=== PATIENT | female | born 1985 | race Caucasian/White ===

== ENCOUNTER 2023-01-09 11:56 | Inpatient (IN) | payer OTHER, SELFPAY ==
--- NOTE | ~2023-01-09 | XR_ITS ---
EXAMINATION: XR ABDOMEN COMPLETE CLINICAL INDICATION: Rule out foreign body COMPARISON: None available. TECHNIQUE: 2 views of the abdomen. FINDINGS: Stool throughout the colon suggestive of constipation. No dilated loops of bowel to suggest obstruction. No free air. No foreign body. Bony structures are unremarkable. XR/XR abdomen min 2V IMPRESSION: No foreign body. Constipation.
[2023-01-09 12:08] VITALS: BP 112/71; PULSE 81; RESP 18; TEMP 37.2; O2SAT 100; BMI 23.2
--- NOTE | 2023-01-09 12:08 | ED_ITS ---
HPI - General Adult General Chief complaint: Psychiatric Symptoms Stated complaint: crisis Time Seen by Provider: 01/09/23 12:17 Source: patient Mode of arrival: ambulatory Limitations: no limitations History of Present Illness HPI narrative: Patient is a 37 year old assigned female at with a history of anxiety and depression presenting to the emergency department today with suicidal ideation and depression. Patient states that she has been much more depressed lately. Patient states that she has had thoughts of harming herself but does not have any plan and know that it is not the right thing to do. Patient denies any dizziness, lightheadedness, abdominal pain, nausea, vomiting, fever, chills, blurry vision, double vision, loss of vision, chest pain, difficulty breathing, shortness of breath, back pain, night sweats, pain with urination, increased urinary frequency, increased urinary urgency, blood in her urine or stool, syncope or a near syncopal episode, recent trauma or falls, bowel incontinence, bladder incontinence, bowel retention, bladder retention, or any other complaints at this time. Onset (ago): day(s) Relieving factors: none Exacerbating factors: none Associated symptoms: denies other symptoms Treatments prior to arrival: none Related Data Home Medications Medication Instructions Recorded Confirmed baclofen 10 mg tablet 10 mg PO TID 01/09/23 01/09/23 divalproex 500 mg tablet,delayed 500 mg PO Q12H 01/09/23 01/09/23 release escitalopram oxalate 10 mg tablet 10 mg PO DAILY 01/09/23 01/09/23 folic acid 1 mg tablet 1 mg PO DAILY 01/09/23 01/09/23 gabapentin 300 mg capsule 300 mg PO BEDTIME 01/09/23 01/09/23 hydroxyzine pamoate 50 mg capsule 50 mg PO TID PRN anxiety 01/09/23 01/09/23 melatonin 3 mg tablet 3 mg PO BEDTIME PRN insomnia 01/09/23 01/09/23 mirtazapine 30 mg tablet 30 mg PO BEDTIME 01/09/23 01/09/23 omeprazole 40 mg capsule,delayed 40 mg PO BID 01/09/23 01/09/23 release prazosin 1 mg capsule 1 mg PO BID 01/09/23 01/09/23 prazosin 2 mg capsule 2 mg PO BEDTIME 01/09/23 01/09/23 Allergies Allergy/AdvReac Type Severity Reaction Status Date / Time acetaminophen [From VICODIN] Allergy Unknown RASH Unverified 05/02/20 19:53 hydrocodone [From VICODIN] Allergy Unknown RASH Unverified 05/02/20 19:53 Review of Systems Constitutional: Constitutional: Reports no additional constitutional complaints, Denies chills, Denies fever(s) and Denies night sweats Eyes: Eyes: Reports no additional eye complaints, Denies blurry vision, Denies change in vision, Denies diplopia, Denies eye discharge, Denies loss of vision and Denies eye pain ENT: Denies dizziness Cardiovascular: Cardiovascular: Reports no additional cardiovascular complaints, Denies chest pain, Denies lightheadedness, Denies Loss of Consciousness and Denies dyspnea Respiratory: Respiratory: Reports no additional respiratory complaints and Denies dyspnea Gastrointestinal: Gastrointestinal: Reports no additional gastrointestinal complaints, Denies abdominal pain, Denies melena, Denies hematochezia, Denies change in bowel habits and Denies change in stool character Genitourinary: Genitourinary: Denies hematuria, Denies urinary frequency, Denies dysuria, Denies urinary incontinence, Denies urinary hesitancy and Denies urinary urgency Musculoskeletal: Musculoskeletal: Reports no additional musculoskeletal complaints, Denies numbness and Denies tingling Neurologic: Denies dizziness, Denies loss of vision, Denies numbness and Denies tingling Psychiatric: Psychiatric: Reports anxiety, Reports depression, Denies homicidal ideation and Reports suicidal ideation Endocrine: Endocrine: Reports no additional endocrine complaints Hematologic/Lymphatic: Hematologic/Lymphatic: Reports no additional hematol ogic/lymphatic complaints Allergic/Immunologic: Allergic/Immunologic: Reports no additional allergic/immunologic complaints PMFSH Past Medical History Attestation statement: The following information was validated with the patient. Source: old records reviewed and nursing notes reviewed Social History Social History Advance Directives: No Advance Directives Information Provided: No Physical Exam ED Vital Signs: Vital Signs - 24 hr 01/09/23 12:08 Temperature 99 F Pulse Rate 81 Respiratory Rate 18 Blood Pressure 112/71 Pulse Oximetry 100 Oxygen Delivery Method Room Air BMI result Body Mass Index 23.2 Const General: cooperative, no acute distress, alert and awake Nutritional Appearance: well nourished Orientation/consciousness: patient oriented x3 Limitations: no limitations HENMT Head: Yes normal to inspection and Yes atraumatic Ears: hearing grossly normal bilaterally and external ears normal General nose exam: Normal external nose present, no nasal discharge noted and no epistaxis Face and sinus: Yes normal facial exam, No abrasion and No laceration Mouth: Normal oral and palatal mucosa present, no drooling and no muffled voice Eyes General: appearance normal, both eyes and all related structures Periorbital: periorbital findings normal Eyelids: Yes eyelids normal Conjunctivae: conjunctivae normal Pupils: Equal, round and reactive pupils present EOM: EOMs intact bilaterally Neck Neck: Yes normal visual inspection, Yes full ROM and Yes no lymphadenopathy Chest Chest palpation & inspection: normal inspection of the chest Resp Effort & Inspection: normal respiratory effort and able to speak in complete sentences Auscultation: clear to auscultation bilaterally Cardio Rate: regular rate Rhythm: regular rhythm GI Inspection: Yes normal to inspection Neuro General: patient oriented x3 and moves all extremities Cranial nerves: Yes Equal, round and reactive pupils present Cognition (Neuro): normal cognition Motor exam (neuro): 5/5 motor strength present throughout Sensory Exam: Normal double simultaneous stimulation for sensation Coordination: [id number] test normal Extrem General: Yes normal to inspection, Yes full ROM and Yes capillary refill normal Psych Appearance: grossly normal Mental Status: mental status grossly normal Affect: Sad affect present Attitude: cooperative Thought process: Normal thought process present Thought content: Suicidality present Course Course Course Narrative: RME performed by Johana Victor PA-C. Patient is a 37 year old assigned female at presenting to the emergency department with severe depression. S uicidal ideation, no plan. Labs ordered. Patient placed back in the waiting room pending room availability and results. Medications Administered Generic Name Dose Route Start Last Admin Trade Name Freq PRN Reason Stop Dose Admin Baclofen 10 mg 01/09/23 15:00 01/09/23 13:59 Baclofen 10 Mg Tablet PO 10 mg TID MICK Administration Hydroxyzine HCl 50 mg 01/09/23 13:47 01/09/23 13:59 Hydroxyzine Hcl 50 Mg Tablet PO 50 mg TID PRN Administration anxiety Omeprazole 40 mg 01/09/23 16:30 01/09/23 15:59 Omeprazole 40 Mg Capsule. PO 40 mg BID@0630,1630 MICK Administration Prazosin HCl 1 mg 01/10/23 09:00 01/09/23 15:58 Prazosin Hcl 1 Mg Capsule PO 1 mg BID@0900,1500 MICK Administration Protocol Medical Decision Making Medical Decision Making [facility] Narrative: Patient is a 37 year old assigned female at with a history of anxiety and depression presenting to the emergency department today with suicidal ideation without a plan. Patient's physical exam was unremarkable. Patient's blood work was unremarkable. Patient's urine showed a possible urinary tract infection however, she is declining any symptoms so will wait for culture before treatment. I explained my physical exam findings as well as all test results to the patient. I answered all questions asked by the patient. CARE team spoke with her and recommended inpatient bed search. Differential Diagnosis Differential Diagnoses: The differential diagnosis associated with the presentation includes depression, suicidal ideation, anxiety Consult Healthcare Provider Management of the patient was discussed with: Behavioral Health Provider (spoke with CARE team as mentioned in the MDM portion of this chart ) Lab Data [facility] Lab Attestation statement: I reviewed the patient's lab results. 01/09/23 12:46 01/09/23 12:46 Labs: Lab Results 01/09/23 01/09/23 01/09/23 Range/Units 12:38 12:38 12:40 WBC (4.8-10.8) X10*3/uL RBC (4.20-5.50) X10*6/uL Hgb (12.0-16.0) g/dl Hct (37.0-47.0) % MCV (80.0-98.0) fL MCH (27.0-33.0) pg MCHC (31.0-35.0) g/dl RDW (11.0-16.0) % Plt Count (160-400) X10*3/uL MPV (9.4-12.3) fL Immature Gran % (Auto) (0.0-0.4) % Neut % (Auto) (45-73) % Lymph % (Auto) (20-40) % [place] % (Auto) (2-11) % Eos % (Auto) (0-4) % Baso % (Auto) (0-2) % Lymph # (Auto) (1.2-4.9) X10*3/uL [place] # (Auto) (0.1-1.2) X10*3/uL Eos # (Auto) (0.0-0.4) X10*3/uL Baso # (Auto) (0.0-0.2) X10*3/uL Abs Immat Gran (auto) (0.00-0.03) X10*3/uL Absolute Neuts (auto) (2.0-8.3) x10*3/uL Absolute Nucleated RBC (0.0-0.012) X10*3/uL Nucleated RBC % (auto) (0.0-0.2) /100WBC Sodium (135-145) mmol/L Potassium (3.3-5.1) mmol/L Chloride (96-108) mmol/L Carbon Dioxide (22-29) mmol/L Anion Gap (12-20) BUN (9-16) mg/dL Creatinine (0.5-1.4) mg/dL Estim Creat Clear Calc Estimated GFR Random Glucose (60-115) mg/dL Calcium (8.4-10.2) mg/dL Total Bilirubin (0.0-1.0) mg/dL AST (5-31) U/L ALT (0-31) U/L Alkaline Phosphatase (39-117) U/L Total Protein (6.5-8.0) g/dL Albumin (3.5-5.0) g/dL Urine Color Dark Yellow Urine Appearance Turbid Urine pH 5.5 (5.0-9.0) Ur Specific [place] 1.025 (1.005-1.025) Urine Protein 30 (1+) H (Neg-Trace) mg/dL Urine Glucose (UA) Negative (Negative) mg/dL Urine Ketones Trace (Negative) mg/dL Urine Blood Trace H (Negative) Urine Nitrite Negative (Negative) Ur Leukocyte Esterase Moderate (2+) H (Negative) Urine RBC 3-5 H (0-2) /HPF Urine WBC >50 H (0-5) /HPF Ur Squamous Epith Cells 6-10 (0-2) /HPF Urine Bacteria 4+ (None Seen) Hyaline Casts 3-5 (0-2) /LPF Urine Test NEGATIVE (NEGATIVE) Salicylates (15-30) mg/dL Urine Opiates Screen Not Detected (Not Detect) Urine Fentanyl Screen POSITIVE H (Not Detect) Acetaminophen (<30) mcg/mL Ur Barbiturates Screen Not Detected (Not Detect) Ur Phencyclidine Scrn Not Detected (Not Detect) Ur Amphetamines Screen Not Detected (Not Detect) U Benzodiazepines Scrn POSITIVE H (Not Detect) Urine Cocaine Screen POSITIVE H (Not Detect) U Marijuana (THC) Screen Not Detected (Not Detect) Ethyl Alcohol mg/dL COVID-19 (FRANTZ) (Negative) COVID-19 Clin Com 01/09/23 01/09/23 01/09/23 Range/Units 12:46 12:46 12:46 WBC 3.3 L (4.8-10.8) X10*3/uL RBC 4.50 (4.20-5.50) X10*6/uL Hgb 13.4 (12.0-16.0) g/dl Hct 40.0 (37.0-47.0) % MCV 88.9 (80.0-98.0) fL MCH 29.8 (27.0-33.0) pg MCHC 33.5 (31.0-35.0) g/dl RDW 13.2 (11.0-16.0) % Plt Count 229 (160-400) X10*3/uL MPV 9.9 (9.4-12.3) fL Immature Gran % (Auto) 0.3 (0.0-0.4) % Neut % (Auto) 44.8 L (45-73) % Lymph % (Auto) 40.5 H (20-40) % [place] % (Auto) 9.2 (2-11) % Eos % (Auto) 4.3 H (0-4) % Baso % (Auto) 0.9 (0-2) % Lymph # (Auto) 1.3 (1.2-4.9) X10*3/uL [place] # (Auto) 0.3 (0.1-1.2) X10*3/uL Eos # (Auto) 0.1 (0.0-0.4) X10*3/uL Baso # (Auto) 0.0 (0.0-0.2) X10*3/uL Abs Immat Gran (auto) 0.01 (0.00-0.03) X10*3/uL Absolute Neuts (auto) 1.5 L (2.0-8.3) x10*3/uL Absolute Nucleated RBC 0.000 (0.0-0.012) X10*3/uL Nucleated RBC % (auto) 0.0 (0.0-0.2) /100WBC Sodium 142 (135-145) mmol/L Potassium 3.6 (3.3-5.1) mmol/L Chloride 109 H (96-108) mmol/L Carbon Dioxide 24 (22-29) mmol/L Anion Gap 13 (12-20) BUN 10 (9-16) mg/dL Creatinine 0.97 (0.5-1.4) mg/dL Estim Creat Clear Calc 67.2 Estimated GFR > 60 Random Glucose 142 H (60-115) mg/dL Calcium 9.5 (8.4-10.2) mg/dL Total Bilirubin 0.5 (0.0-1.0) mg/dL AST 17 (5-31) U/L ALT 14 (0-31) U/L Alkaline Phosphatase 43 (39-117) U/L Total Protein 6.7 (6.5-8.0) g/dL Albumin 3.9 (3.5-5.0) g/dL Urine Color Urine Appearance Urine pH (5.0-9.0) Ur Specific [place] (1.005-1.025) Urine Protein (Neg-Trace) mg/dL Urine Glucose (UA) (Negative) mg/dL Urine Ketones (Negative) mg/dL Urine Blood (Negative) Urine Nitrite (Negative) Ur Leukocyte Esterase (Negative) Urine RBC (0-2) /HPF Urine WBC (0-5) /HPF Ur Squamous Epith Cells (0-2) /HPF Urine Bacteria (None Seen) Hyaline Casts (0-2) /LPF Urine Test (NEGATIVE) Salicylates < 5.0 L (15-30) mg/dL Urine Opiates Screen (Not Detect) Urine Fentanyl Screen (Not Detect) Acetaminophen < 17 (<30) mcg/mL Ur Barbiturates Screen (Not Detect) Ur Phencyclidine Scrn (Not Detect) Ur Amphetamines Screen (Not Detect) U Benzodiazepines Scrn (Not Detect) Urine Cocaine Screen (Not Detect) U Marijuana (THC) Screen (Not Detect) Ethyl Alcohol < 10 mg/dL COVID-19 (FRANTZ) Negative (Negative) COVID-19 Clin Com See Note Discharge Plan Discharge Clinical Impression: Depression Patient Disposition: Still a Patient Prescriptions: No Action gabapentin 300 mg capsule 300 mg PO BEDTIME prazosin 1 mg capsule 1 mg PO BID prazosin 2 mg capsule 2 mg PO BEDTIME hydroxyzine pamoate 50 mg capsule 50 mg PO TID PRN (Reason: anxiety) melatonin 3 mg tablet 3 mg PO BEDTIME PRN (Reason: insomnia) divalproex 500 mg tablet,delayed release (DR/EC) 500 mg PO Q12H omeprazole 40 mg capsule,delayed release(DR/EC) 40 mg PO BID baclofen 10 mg tablet 10 mg PO TID mirtazapine 30 mg tablet 30 mg PO BEDTIME folic acid 1 mg tablet 1 mg PO DAILY escitalopram oxalate 10 mg tablet 10 mg PO DAILY Interventions: [place]-Suicide Risk Severity Scale Last Done: 01/09/23 12:10
[2023-01-09 12:54] LABS: Basophils Percent Auto 0.9 % (0-2); Eosinophils Absolute Auto 0.1 X10*3/uL (0.0-0.4); Eosinophils Percent Auto 4.3 % (0-4); Hemoglobin 13.4 g/dl (12.0-16.0); Imm Gran Abs Auto 0.01 X10*3/uL (0.00-0.03); Imm Gran Pct Auto 0.3 % (0.0-0.4); Lymphocytes Absolute Auto 1.3 X10*3/uL (1.2-4.9); Lymphocytes Percent Auto 40.5 % (20-40); MANUAL DIFF FLAG NO; Mean Corpuscular HGB Conc 33.5 g/dl (31.0-35.0); Mean Corpuscular Hemoglobin 29.8 pg (27.0-33.0); Mean Corpuscular Volume 88.9 fL (80.0-98.0); Mean Platelet Volume 9.9 fL (9.4-12.3); Monocytes Absolute Auto 0.3 X10*3/uL (0.1-1.2); Monocytes Percent Auto 9.2 % (2-11); Neutrophils Absolute Auto 1.5 x10*3/uL (2.0-8.3); Neutrophils Percent Auto 44.8 % (45-73); Platelet Count 229 X10*3/uL (160-400); Red Cell Distribution Width 13.2 % (11.0-16.0); White Blood Count 3.3 X10*3/uL (4.8-10.8)
[2023-01-09 12:57] LABS: Appearance Urine Turbid; Color Urine Dark Yellow; Glucose Urine UA Negative (Negative); Leukocyte Esterase Urine Moderate (2+) (Negative); Nitrite Urine Negative (Negative); PH 5.5 (5.0-9.0); Specific Gravity - Urine 1.025 (1.005-1.025); UMIC TRIGGER UA YES; Urine Blood Trace (Negative); Urine Ketones Trace mg/dL (Negative); Urine Protein 30 (1+) mg/dL (Neg-Trace)
[2023-01-09 12:59] LABS: UPreg QC Valid YES; Urine Pregnancy NEGATIVE (NEGATIVE)
[2023-01-09 13:05] LABS: Amphetamine Screen Urine Not Detected (Not Detect); Barbiturates, Urine Not Detected (Not Detect); Benzodiazepines Screen Urine POSITIVE (Not Detect); Cannabinoid Screen Urine Not Detected (Not Detect); Cocaine Screen Urine POSITIVE (Not Detect); Fentanyl, urine POSITIVE (Not Detect); Opiate Screen Urine Not Detected (Not Detect); Phencyclidine Screen Urine Not Detected (Not Detect)
[2023-01-09 13:06] LABS: COVID-19 Test Negative (Negative); IDNOW Serial# BCCEAD1C
[2023-01-09 13:10] LABS: Bacteria Urine 4+ (None Seen); WBC Urine >50 /HPF (0-5)
[2023-01-09 13:23] LABS: Acetaminophen LAB < 17 mcg/mL (<30); Alanine Aminotransferase 14 U/L (0-31); Albumin Level 3.9 g/dL (3.5-5.0); Alkaline Phosphatase 43 U/L (39-117); Anion Gap 13 (12-20); Aspartate Amino Transferase 17 U/L (5-31); Bilirubin Total 0.5 mg/dL (0.0-1.0); Blood Urea Nitrogen 10 mg/dL (9-16); Calcium 9.5 mg/dL (8.4-10.2); Carbon Dioxide 24 mmol/L (22-29); Chloride 109 mmol/L (96-108); Creatinine Clr Calc Pharmacy 67.2; Estimated Glomerular Filt Rate > 60; Ethanol < 10 mg/dL; Glucose Random 142 mg/dL (60-115); Potassium 3.6 mmol/L (3.3-5.1); Salicylate < 5.0 mg/dL (15-30); Sodium 142 mmol/L (135-145); Total Protein 6.7 g/dL (6.5-8.0)
[2023-01-09] MEDS: hydrOXYzine HCL 50 MG TABLET PO (13:59)
[2023-01-09] MEDS: Baclofen 10 MG TABLET PO ×2 (13:59→22:38)
[2023-01-09] MEDS: Prazosin HCL 1 MG CAPSULE PO (15:58)
[2023-01-09] MEDS: Omeprazole 40 MG CAPSULE.DR PO (15:59)
--- NOTE | 2023-01-09 16:46 | ECG_ITS ---
Test Reason : CHECK QT Blood Pressure : / mmHG Vent. Rate : 073 BPM Atrial Rate : 073 BPM P-R Int : 138 ms QRS Dur : 080 ms QT Int : 402 ms P-R-T Axes : 071 062 059 degrees QTc Int : 442 ms Normal sinus rhythm Normal ECG No previous ECGs available Referred By: Johana Victor Electronically Signed By:SWAPNIL GARCIA
--- NOTE | 2023-01-09 17:33 | MHC.RECOVSUP ---
? Reason for consult Recovery support o Current location: [facility] o Identified substance use concern: Crack Cocain - Support ? Intervention: o Community resources provided o Harm reduction discussion ? Plan: o Patient awaiting crisis evaluation o Patient to follow up with [facility] after discharge ? Additional information: Met with Patient and we talk about harm reduction and recovery..We talk about program like [facility].. Patient stated that they want to go to a prison program but away from [facility].. We also talked about [facility] [place] and patient was interested.. Info was given to patient
[2023-01-09 22:05] VITALS: BP 169/63; PULSE 87; RESP 18; TEMP 36.6; O2SAT 100
[2023-01-09] MEDS: Divalproex Sodium 500 MG TABLET.DR PO (22:38)
[2023-01-09] MEDS: Gabapentin 300 MG CAPSULE PO (22:38)
[2023-01-09] MEDS: Mirtazapine 30 MG TABLET PO (22:38)
[2023-01-09] MEDS: Prazosin HCL 1 MG CAPSULE 2 MG PO (22:39)
[2023-01-09] MEDS: Melatonin 3 MG TABLET PO (22:44)
[2023-01-09] MEDS: LORazepam 1 MG TABLET 2 MG PO (22:44)
[2023-01-09 23:13] VITALS: PULSE 87
[2023-01-10] VITALS (8 sets, daily range): BP systolic 86–123; BP diastolic 43–60; PULSE 70–88; RESP 16–18; TEMP 36.5–36.7; O2SAT 97–100
--- NOTE | 2023-01-10 03:42 | PC.ADMIT ---
Patient is a 37 year old female admitted from [facility] on 01/09/23 at 2205 on a CV for increased depression and SI without a plan. Patient reports her brother and son have within the past year, and it is right around the anniversary of her son?s . Patient has had 5 inpatient hospitalizations in the past, one prior suicide attempt (4 years ago, patient attempted to hang self). Toxicology positive for fentanyl, cocaine, benzo?s. She reports daily alcohol consumption of two pints of vodka per day. She uses crack-cocaine daily, and reports that she uses heroin daily as well. Her last drink and drug use was 01/09/23 prior to coming to ED. Provider notified and patient placed on CIWA and COWS Q4H while awake. Patient arrives to unit, tearful, agitated, complaining of withdrawals. She reports SI, no plan. ?Patient does not want to be here any longer.?? Denies HI, AH/VH, feels comfortable coming to staff if needed. Upon arrival, patient declined to participate in the admission process. Orders obtained, patient placed on 15 minutes checks at this time.
[2023-01-10] MEDS: LORazepam 1 MG TABLET PO (04:37)
[2023-01-10 07:40] LABS: Estimated Average Glucose 85 mg/dL; Hemoglobin A1c % 4.6 %
[2023-01-10 08:26] LABS: Alanine Aminotransferase 12 U/L (0-31); Albumin Level 3.2 g/dL (3.5-5.0); Alkaline Phosphatase 44 U/L (39-117); Anion Gap 9 (12-20); Aspartate Amino Transferase 11 U/L (5-31); Bilirubin Total 0.2 mg/dL (0.0-1.0); Blood Urea Nitrogen 21 mg/dL (9-16); Calcium 8.5 mg/dL (8.4-10.2); Carbon Dioxide 24 mmol/L (22-29); Chloride 109 mmol/L (96-108); Cholesterol 142 mg/dL; Creatinine Clr Calc Pharmacy 71.6; Estimated Glomerular Filt Rate > 60; Folate 13.3 ng/mL (> or = 4.0); Free T4 (Free Thyroxine) 0.85 ng/dL (0.71-1.85); Glucose Fasting 127 mg/dL (60-99); HDL Cholesterol 43 mg/dL; LDL Cholesterol Calculated 87 mg/dl; Potassium 3.9 mmol/L (3.3-5.1); Sodium 138 mmol/L (135-145); Thyroid Stimulating Hormone 0.86 uIU/mL (0.32-4.0); Total Protein 5.4 g/dL (6.5-8.0); Triglycerides 60 mg/dL; Vitamin B12 224 pg/mL (200-900)
[2023-01-10] MEDS: Prazosin HCL 1 MG CAPSULE PO (09:34)
[2023-01-10] MEDS: Divalproex Sodium 500 MG TABLET.DR PO ×2 (09:34→21:53)
[2023-01-10] MEDS: Omeprazole 40 MG CAPSULE.DR PO ×2 (09:34→16:34)
[2023-01-10] MEDS: Folic Acid 1 MG TABLET PO (09:34)
[2023-01-10] MEDS: Escitalopram Oxalate 10 MG TABLET PO (09:34)
[2023-01-10] MEDS: Baclofen 10 MG TABLET PO ×3 (09:34→21:53)
[2023-01-10] MEDS: LORazepam 1 MG TABLET 2 MG PO (09:42)
[2023-01-10] MEDS: Magnesium Hydrox/Alum Hydrox 30 ML ORAL.SUSP PO (09:42)
[2023-01-10] MEDS: Ondansetron ODT 4 MG TAB.RAPDIS TRANSLINGU (11:04)
[2023-01-10] MEDS: methADONE HCl 20 MG/2 ML ORAL.CONC 30 MG PO (13:58)
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
[2023-01-10] MEDS: Prazosin HCL 1 MG CAPSULE 2 MG PO (21:53)
[2023-01-10] MEDS: Gabapentin 300 MG CAPSULE PO (21:53)
[2023-01-10] MEDS: Mirtazapine 30 MG TABLET PO (21:53)
[2023-01-11 00:15] VITALS: BP 109/53; PULSE 60; O2SAT 100
[2023-01-11] MEDS: hydrOXYzine HCL 50 MG TABLET PO (00:19)
[2023-01-11] MEDS: Melatonin 3 MG TABLET PO (00:20)
[2023-01-11 05:10] VITALS: BP 114/54; PULSE 58; O2SAT 100
[2023-01-11 06:00] VITALS: BP 110/62; PULSE 58; RESP 16; TEMP 36.8; O2SAT 99
[2023-01-11 08:00] VITALS: PULSE 58
[2023-01-11] MEDS: methADONE HCl 20 MG/2 ML ORAL.CONC 30 MG PO (08:38)
[2023-01-11] MEDS: Divalproex Sodium 500 MG TABLET.DR PO ×2 (08:38→22:51)
[2023-01-11] MEDS: Omeprazole 40 MG CAPSULE.DR PO ×2 (08:38→16:13)
[2023-01-11] MEDS: Escitalopram Oxalate 10 MG TABLET PO (08:39)
[2023-01-11] MEDS: Baclofen 10 MG TABLET PO ×2 (08:39→16:13)
[2023-01-11] MEDS: LORazepam 1 MG TABLET PO (08:39)
[2023-01-11] MEDS: Folic Acid 1 MG TABLET PO (08:39)
[2023-01-11] MEDS: Dicyclomine HCl 10 MG CAPSULE PO (12:11)
--- NOTE | 2023-01-11 15:02 | HO.PSYCHPN ---
Subjective Subjective Date of Service: 01/11/23 Reason For Visit: SI/depression Interim History: calm, cooperative. walking unsteadily, asking for bolstering by staff; this appears affected. states she feels better than yesterday since starting the methadone, states she is having less nausea today. she does endorse COOK, sweats, and having vomited this morning. educated re ativan taper. asks to DC rich saying she has been on it for a long time and it has not been helpful for her depression. per staff, denies Sx. sleeping a lot. isolative to room. not hypotensive today. broken sleep. Mental Status Exam Mental Status Exam Narrative: calm, cooperative. no PMA/PMR. speech nml rate, decr amount, nml loudness, nml tone, nml latency. thoughts linear and logical. affect constricted, normo-intense, non-labile. no SI/HI/AVH expressed. Diagnostics Vital Signs (24Hr): Vital Signs - 24 hr 01/10/23 15:45 01/10/23 20:15 01/10/23 21:30 Temperature 98.1 F 98.1 F Pulse Rate 70 86 88 Respiratory Rate 16 Blood Pressure 102/56 L 122/56 L 123/60 Pulse Oximetry 100 99 Oxygen Delivery Method Room Air Room Air 01/11/23 00:15 01/11/23 05:10 01/11/23 06:00 Temperature 98.2 F Pulse Rate 60 58 58 Respiratory Rate 16 Blood Pressure 109/53 L 114/54 L 110/62 Pulse Oximetry 100 100 99 Oxygen Delivery Method Room Air Room Air Room Air BMI result Body Mass Index 23.2 Labs 01/09/23 12:46 01/10/23 07:04 Labs: Laboratory Results - last 48 hr 01/10/23 01/10/23 07:04 07:04 Sodium 138 Potassium 3.9 Chloride 109 H Carbon Dioxide 24 Anion Gap 9 L BUN 21 H Creatinine 1.02 Estim Creat Clear Calc 71.6 Estimated GFR > 60 Fasting Glucose 127 H Estimat Average Glucose 85 Hemoglobin A1c % 4.6 Calcium 8.5 D Total Bilirubin 0.2 AST 11 ALT 12 Alkaline Phosphatase 44 Total Protein 5.4 L Albumin 3.2 L Triglycerides 60 Cholesterol 142 LDL Cholesterol, Calc 87 HDL Cholesterol 43 Vitamin B12 224 Folate 13.3 TSH 0.86 Free T4 0.85 Medications Medications Current Medications Al Hydroxide/Mg Hydroxide (Magnesium Hydrox/Alum Hydrox 30 Ml Oral.Susp) 30 ml PO Q6H PRN PRN Reason: Heartburn/Nausea Last Admin: 01/10/23 09:42 Dose: 30 ml Baclofen (Baclofen 10 Mg Tablet) 10 mg PO TID [facility] Last Admin: 01/11/23 08:39 Dose: 10 mg Clonidine HCl (Clonidine Hcl 0.1 Mg Tablet) 0.1 mg PO Q2H PRN; Protocol PRN Reason: signs of opioid withdrawal Dicyclomine HCl (Dicyclomine Hcl 10 Mg Capsule) 10 mg PO QIDACHS PRN PRN Reason: cramps Last Admin: 01/11/23 12:11 Dose: 10 mg Divalproex Sodium (Divalproex Sodium 500 Mg Tablet.Dr) 500 mg PO BID [facility] Last Admin: 01/11/23 08:38 Dose: 500 mg Folic Acid (Folic Acid 1 Mg Tablet) 1 mg PO DAILY [facility] Last Admin: 01/11/23 08:39 Dose: 1 mg Gabapentin (Gabapentin 300 Mg Capsule) 300 mg PO BEDTIME [facility] Last Admin: 01/10/23 21:53 Dose: 300 mg Hydroxyzine HCl (Hydroxyzine Hcl 50 Mg Tablet) 50 mg PO TID PRN PRN Reason: anxiety Last Admin: 01/11/23 00:19 Dose: 50 mg Ibuprofen (Ibuprofen 600 Mg Tablet) 600 mg PO Q6H PRN PRN Reason: Pain, Moderate(Pain Scale 4-6) Lorazepam (Lorazepam 1 Mg Tablet) 1 mg PO Q2H PRN PRN Reason: CIWA 8-11 Last Admin: 01/11/23 08:39 Dose: 1 mg Lorazepam (Lorazepam 1 Mg Tablet) 3 mg PO Q2H PRN PRN Reason: CIWA > 15; and call Lorazepam (Lorazepam 1 Mg Tablet) 2 mg PO Q2H PRN PRN Reason: CIWA 12-15 Last Admin: 01/10/23 09:42 Dose: 2 mg Magnesium Hydroxide (Milk Of Magnesia 30 Ml Oral.Susp) 30 ml PO DAILY PRN PRN Reason: Constipation Melatonin (Melatonin 3 Mg Tablet) 3 mg PO BEDTIME PRN PRN Reason: insomnia Last Admin: 01/11/23 00:20 Dose: 3 mg Mirtazapine (Mirtazapine 30 Mg Tablet) 30 mg PO BEDTIME [facility] Last Admin: 01/10/23 21:53 Dose: 30 mg Nicotine Polacrilex (Nicotine Polacrilex 2 Mg Gum) 2 mg BUCCAL Q2H PRN PRN Reason: Nicotine Cravings Omeprazole (Omeprazole 40 Mg Capsule.Dr) 40 mg PO BID@0630,1630 [facility] Last Admin: 01/11/23 08:38 Dose: 40 mg Ondansetron HCl (Ondansetron Odt 4 Mg Tab.Rapdis) 4 mg TRANSLINGU Q6H PRN PRN Reason: Nausea Last Admin: 01/10/23 11:04 Dose: 4 mg Prazosin HCl (Prazosin Hcl 1 Mg Capsule) 1 mg PO BID@0900,1500 [facility]ICK; Protocol Last Admin: 01/11/23 08:39 Dose: Not Given Prazosin HCl (Prazosin Hcl 1 Mg Capsule) 2 mg PO BEDTIME [facility]; Protocol Last Admin: 01/10/23 21:53 Dose: 2 mg Allergies Allergies Allergy/AdvReac Type Severity Reaction Status Date / Time acetaminophen [From VICODIN] Allergy Unknown RASH Verified 01/09/23 20:59 hydrocodone [From VICODIN] Allergy Unknown RASH Verified 01/09/23 20:59 clonidine AdvReac Unknown Unknown Verified 01/10/23 01:05 Assessment & Plan Assessment & Plan (1) Depression: Status: Acute Code(s): F32.A - Depression, unspecified (2) Cocaine use disorder: Status: Acute Code(s): F14.10 - Cocaine abuse, uncomplicated (3) Opioid use disorder: Status: Acute Code(s): F11.90 - Opioid use, unspecified, uncomplicated (4) Alcohol use disorder: Status: Acute Code(s): F10.90 - Alcohol use, unspecified, uncomplicated Plan 01/10: ativan per CIWA for AUD and + benzo utox. start methadone 30 mg daily for opioid use disorder. supportive care for cocaine use. restart meds for regulation of mood. refer for CSS. 01/11: calm, cooperative. sleepy, 2/2 not sleeping during cocaine run. reporting some Sx of alcohol withdrawal, but will start ativan taper today. DC lexapro per pt request. Patient educated on: diagnosis, medication risk/benefits and substance abuse Reason for continued inpatient stay Substantial Risk for: inability to function and rapid decompensation Time Spent With Patient Time: Total time managing care of this patient today __25__ minutes.
[2023-01-11 16:05] VITALS: BP 112/56; PULSE 68
[2023-01-11] MEDS: Prazosin HCL 1 MG CAPSULE PO (16:13)
[2023-01-11 21:00] VITALS: BP 111/53; PULSE 69; RESP 16; TEMP 36.3; O2SAT 97
[2023-01-11] MEDS: Prazosin HCL 1 MG CAPSULE 2 MG PO (22:51)
[2023-01-11] MEDS: Mirtazapine 30 MG TABLET PO (22:51)
--- NOTE | 2023-01-12 00:37 | PC.NURSE ---
Patient was noted to be sedated and falling asleep while eating. This advertising writer informed Dr. Long Orona of patient's presentation. Orders received to hold two HS medications.
[2023-01-12 08:15] VITALS: BP 112/63; PULSE 66; RESP 18; TEMP 36.8; O2SAT 99
[2023-01-12] MEDS: Omeprazole 40 MG CAPSULE.DR PO ×2 (09:10→16:57)
[2023-01-12] MEDS: Prazosin HCL 1 MG CAPSULE PO ×2 (09:10→14:14)
[2023-01-12] MEDS: methADONE HCl 20 MG/2 ML ORAL.CONC 30 MG PO (09:11)
[2023-01-12] MEDS: Divalproex Sodium 500 MG TABLET.DR PO ×2 (09:11→20:16)
[2023-01-12] MEDS: Folic Acid 1 MG TABLET PO (09:11)
--- NOTE | 2023-01-12 12:17 | P.PNPSI_ITS ---
Subjective Subjective Date of Service: 01/12/23 Reason For Visit: SI/depression Interim History: somnolent but rousable. avers she uses heroin daily and methadone is very much indicated for her and helpful. c/o shakes, sweats, COOK. states the methadone does not feel sufficient today, believes she is in opioid withdrawal. informs her that due to reports of recent sedation, we will leave the dosing where it is currently and see how the day progresses. she expresses understanding and agreement. JOSEPHINE jesus present for some of the meeting, discuss referrals to CSS. Mental Status Exam Mental Status Exam Narrative: calm, cooperative. no PMA/PMR. speech nml rate, decr amount, nml loudness, nml tone, nml latency. thoughts linear and logical. affect constricted, normo-intense, non-labile. no SI/HI/AVH expressed. Diagnostics Vital Signs (24Hr): Vital Signs - 24 hr 01/11/23 16:05 01/11/23 21:00 Temperature 97.4 F Pulse Rate 68 69 Respiratory Rate 16 Blood Pressure 112/56 L 111/53 L Pulse Oximetry 97 Oxygen Delivery Method Room Air BMI result Body Mass Index 23.2 Labs 01/09/23 12:46 01/10/23 07:04 Medications Medications Current Medications Al Hydroxide/Mg Hydroxide (Magnesium Hydrox/Alum Hydrox 30 Ml Oral.Susp) 30 ml PO Q6H PRN PRN Reason: Heartburn/Nausea Last Admin: 01/10/23 09:42 Dose: 30 ml Baclofen (Baclofen 10 Mg Tablet) 10 mg PO TID [facility] Last Admin: 01/11/23 22:27 Dose: Not Given Divalproex Sodium (Divalproex Sodium 500 Mg Tablet.) 500 mg PO BID [facility] Last Admin: 01/12/23 09:11 Dose: 500 mg Folic Acid (Folic Acid 1 Mg Tablet) 1 mg PO DAILY [facility] Last Admin: 01/12/23 09:11 Dose: 1 mg Gabapentin (Gabapentin 300 Mg Capsule) 300 mg PO BEDTIME [facility] Last Admin: 01/11/23 22:27 Dose: Not Given Hydroxyzine HCl (Hydroxyzine Hcl 50 Mg Tablet) 50 mg PO TID PRN PRN Reason: anxiety Last Admin: 01/11/23 00:19 Dose: 50 mg Ibuprofen (Ibuprofen 600 Mg Tablet) 600 mg PO Q6H PRN PRN Reason: Pain, Moderate(Pain Scale 4-6) Lorazepam (Lorazepam 1 Mg Tablet) 1 mg PO Q2H PRN PRN Reason: CIWA 8-11 Last Admin: 01/11/23 08:39 Dose: 1 mg Lorazepam (Lorazepam 1 Mg Tablet) 3 mg PO Q2H PRN PRN Reason: CIWA > 15; and call MD Lorazepam (Lorazepam 1 Mg Tablet) 2 mg PO Q2H PRN PRN Reason: CIWA 12-15 Last Admin: 01/10/23 09:42 Dose: 2 mg Magnesium Hydroxide (Milk Of Magnesia 30 Ml Oral.Susp) 30 ml PO DAILY PRN PRN Reason: Constipation Melatonin (Melatonin 3 Mg Tablet) 3 mg PO BEDTIME PRN PRN Reason: insomnia Last Admin: 01/11/23 00:20 Dose: 3 mg Methadone HCl (Methadone Hcl 20 Mg/2 Ml Oral.Conc) 30 mg PO DAILY [facility] Last Admin: 01/12/23 09:11 Dose: 30 mg Mirtazapine (Mirtazapine 30 Mg Tablet) 30 mg PO BEDTIME [facility] Last Admin: 01/11/23 22:51 Dose: 30 mg Nicotine Polacrilex (Nicotine Polacrilex 2 Mg Gum) 2 mg BUCCAL Q2H PRN PRN Reason: Nicotine Cravings Omeprazole (Omeprazole 40 Mg Capsule.Dr) 40 mg PO BID@0630,1630 [facility] Last Admin: 01/12/23 09:10 Dose: 40 mg Ondansetron HCl (Ondansetron Odt 4 Mg Tab.Rapdis) 4 mg TRANSLINGU Q6H PRN PRN Reason: Nausea Last Admin: 01/10/23 11:04 Dose: 4 mg Prazosin HCl (Prazosin Hcl 1 Mg Capsule) 1 mg PO BID@0900,1500 [facility]; Protocol Last Admin: 01/12/23 09:10 Dose: 1 mg Prazosin HCl (Prazosin Hcl 1 Mg Capsule) 2 mg PO BEDTIME [facility]; Protocol Last Admin: 01/11/23 22:51 Dose: 2 mg Allergies Allergies Allergy/AdvReac Type Severity Reaction Status Date / Time acetaminophen [From VICODIN] Allergy Unknown RASH Verified 01/09/23 20:59 hydrocodone [From VICODIN] Allergy Unknown RASH Verified 01/09/23 20:59 clonidine AdvReac Unknown Unknown Verified 01/10/23 01:05 Assessment & Plan Assessment & Plan (1) Depression: Status: Acute Code(s): F32.A - Depression, unspecified (2) Cocaine use disorder: Status: Acute Code(s): F14.10 - Cocaine abuse, uncomplicated (3) Opioid use disorder: Status: Acute Code(s): F11.90 - Opioid use, unspecified, uncomplicated (4) Alcohol use disorder: Status: Acute Code(s): F10.90 - Alcohol use, unspecified, uncomplicated Plan 01/10: ativan per CIWA for AUD and + benzo utox. start methadone 30 mg daily for opioid use disorder. supportive care for cocaine use. restart meds for regulation of mood. refer for CSS. 01/11: calm, cooperative. sleepy, 2/2 not sleeping during cocaine run. reporting some Sx of alcohol withdrawal, but will start ativan taper today. DC lexapro per pt request. 01/12: ativan taper DCed due to reports of over-sedation yesterday. continue methadone 30 and other medications for now and observe for level of consciousness. pt reporting feeling in opioid withdrawal today; seems more awake and alert than yesterday. Reason for continued inpatient stay Substantial Risk for: inability to function and rapid decompensation Time Spent With Patient Time: Total time managing care of this patient today ____ minutes.
[2023-01-12 14:15] VITALS: BP 105/62; PULSE 69; RESP 18; O2SAT 94
[2023-01-12] MEDS: LORazepam 1 MG TABLET PO ×3 (14:16→20:16)
[2023-01-12] MEDS: Ondansetron ODT 4 MG TAB.RAPDIS TRANSLINGU (14:17)
--- NOTE | 2023-01-12 14:41 | PC.NURSE ---
1415 pt reports that she has been incontinent of stool 2x today, and that it happens sometimes' she is using adult briefs.
[2023-01-12 19:47] VITALS: BP 120/64; PULSE 77; RESP 16; TEMP 36.7; O2SAT 98
[2023-01-12] MEDS: Prazosin HCL 1 MG CAPSULE 2 MG PO (20:16)
[2023-01-12] MEDS: Mirtazapine 30 MG TABLET PO (20:16)
[2023-01-13] MEDS: LORazepam 1 MG TABLET PO (03:39)
[2023-01-13] MEDS: Omeprazole 40 MG CAPSULE.DR PO (06:30)
[2023-01-13 08:10] VITALS: BP 110/65; PULSE 75; RESP 18; TEMP 36.6; O2SAT 98
[2023-01-13] MEDS: Folic Acid 1 MG TABLET PO (09:01)
[2023-01-13] MEDS: Prazosin HCL 1 MG CAPSULE PO (09:01)
[2023-01-13] MEDS: methADONE HCl 20 MG/2 ML ORAL.CONC 30 MG PO (09:02)
[2023-01-13] MEDS: Divalproex Sodium 500 MG TABLET.DR PO ×2 (09:02→21:14)
--- NOTE | 2023-01-13 13:43 | PC.NURSE ---
approx 1330 observed Pt, sleeping sitting up in chair in kitchen area. Pt was awakened, assisted x2 assists. Pt thought it was morning time and that i was there to give her medication. Dr. Orona notified , new order for Urine toxicity screen and a room search. Ariella Lopez notified, of orders.
--- NOTE | 2023-01-13 15:05 | PC.NURSE ---
Room search completed by Cristi Abebe and security per MD order no contraband found.
--- NOTE | 2023-01-13 15:54 | P.PNPSI_ITS ---
Subjective Subjective Date of Service: 01/13/23 Reason For Visit: SI/depression Interim History: sedated more so than would be reasonably expected with current prescribed medications, suspect pt to be using contraband in hospital. none found in pt's room or on her person, abd xray ordered. on interview, sedated, helped move pt from an apparently impossibly uncomfortable position draped across her bed to one more parallel to the bed, and on it. per staff, dep/anx 10, c/o left arm pa in. achy, cold. c/o opioid withdrawal Sx. not attending groups. ativan per CIWA scale yesterday. Mental Status Exam Mental Status Exam Narrative: calm, cooperative. no PMA/PMR. speech decr rate, decr amount, decr loudness, flattened tone, incr latency. thoughts linear and logical. affect blunted, hypo-intense, non-labile. no SI/HI/AVH expressed. Diagnostics Vital Signs (24Hr): Vital Signs - 24 hr 01/12/23 19:47 01/13/23 08:10 Temperature 98.1 F 97.9 F Pulse Rate 77 75 Respiratory Rate 16 18 Blood Pressure 120/64 110/65 Pulse Oximetry 98 98 Oxygen Delivery Method Room Air Room Air BMI result Body Mass Index 23.2 Labs 01/09/23 12:46 01/10/23 07:04 Medications Medications Current Medications Al Hydroxide/Mg Hydroxide (Magnesium Hydrox/Alum Hydrox 30 Ml Oral.Susp) 30 ml PO Q6H PRN PRN Reason: Heartburn/Nausea Last Admin: 01/10/23 09:42 Dose: 30 ml Baclofen (Baclofen 10 Mg Tablet) 10 mg PO TID [facility] Last Admin: 01/11/23 22:27 Dose: Not Given Divalproex Sodium (Divalproex Sodium 500 Mg Tablet.Dr) 500 mg PO BID [facility] Last Admin: 01/13/23 09:02 Dose: 500 mg Folic Acid (Folic Acid 1 Mg Tablet) 1 mg PO DAILY [facility] Last Admin: 01/13/23 09:01 Dose: 1 mg Gabapentin (Gabapentin 300 Mg Capsule) 300 mg PO BEDTIME [facility] Last Admin: 01/11/23 22:27 Dose: Not Given Hydroxyzine HCl (Hydroxyzine Hcl 50 Mg Tablet) 50 mg PO TID PRN PRN Reason: anxiety Last Admin: 01/11/23 00:19 Dose: 50 mg Ibuprofen (Ibuprofen 600 Mg Tablet) 600 mg PO Q6H PRN PRN Reason: Pain, Moderate(Pain Scale 4-6) Magnesium Hydroxide (Milk Of Magnesia 30 Ml Oral.Susp) 30 ml PO DAILY PRN PRN Reason: Constipation Melatonin (Melatonin 3 Mg Tablet) 3 mg PO BEDTIME PRN PRN Reason: insomnia Last Admin: 01/11/23 00:20 Dose: 3 mg Methadone HCl (Methadone Hcl 20 Mg/2 Ml Oral.Conc) 30 mg PO DAILY [facility] Last Admin: 01/13/23 09:02 Dose: 30 mg Mirtazapine (Mirtazapine 30 Mg Tablet) 30 mg PO BEDTIME [facility] Last Admin: 01/12/23 20:16 Dose: 30 mg Naloxone HCl (Naloxone Hcl Nasal 4 Mg [place]) 4 mg NOSTRILALT ONCE PRN PRN Reason: opioid overdose Nicotine Polacrilex (Nicotine Polacrilex 2 Mg Gum) 2 mg BUCCAL Q2H PRN PRN Reason: Nicotine Cravings Omeprazole (Omeprazole 40 Mg Capsule.Dr) 40 mg PO BID@0630,1630 [facility] Last Admin: 01/13/23 06:30 Dose: 40 mg Ondansetron HCl (Ondansetron Odt 4 Mg Tab.Rapdis) 4 mg TRANSLINGU Q6H PRN PRN Reason: Nausea Last Admin: 01/12/23 14:17 Dose: 4 mg Prazosin HCl (Prazosin Hcl 1 Mg Capsule) 1 mg PO BID@0900,1500 [facility]; Protocol Last Admin: 01/13/23 09:01 Dose: 1 mg Prazosin HCl (Prazosin Hcl 1 Mg Capsule) 2 mg PO BEDTIME [facility]; Protocol Last Admin: 01/12/23 20:16 Dose: 2 mg Allergies Allergies Allergy/AdvReac Type Severity Reaction Status Date / Time acetaminophen [From VICODIN] Allergy Unknown RASH Verified 01/09/23 20:59 hydrocodone [From VICODIN] Allergy Unknown RASH Verified 01/09/23 20:59 clonidine AdvReac Unknown Unknown Verified 01/10/23 01:05 Assessment & Plan Assessment & Plan (1) Depression: Status: Acute Code(s): F32.A - Depression, unspecified (2) Cocaine use disorder: Status: Acute Code(s): F14.10 - Cocaine abuse, uncomplicated (3) Opioid use disorder: Status: Acute Code(s): F11.90 - Opioid use, unspecified, uncomplicated (4) Alcohol use disorder: Status: Acute Code(s): F10.90 - Alcohol use, unspecified, uncomplicated Plan 01/10: ativan per CIWA for AUD and + benzo utox. start methadone 30 mg daily for opioid use disorder. supportive care for cocaine use. restart meds for regulation of mood. refer for CSS. 01/11: calm, cooperative. sleepy, 2/2 not sleeping during cocaine run. reporting some Sx of alcohol withdrawal, but will start ativan taper today. DC lexapro per pt request. 01/12: ativan taper DCed due to reports of over-sedation yesterday. continue methadone 30 and other medications for now and observe for level of consciousness. pt reporting feeling in opioid withdrawal today; seems more awake and alert than yesterday. 01/13: very sedated. room and person NEG for contraband. 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 utox ordered. HOLD sedating medications. Reason for continued inpatient stay Substantial Risk for: harm to self, inability to function and rapid decompensation Time Spent With Patient Time: Total time managing care of this patient today __35__ minutes.
--- NOTE | 2023-01-13 16:19 | PC.NURSE ---
Pt appeared sedated while sleeping. RN woke up pt and had her sit up. RN assessed vitals, 117/65, O2 96% HR 71 T 98.1, RR 12. Pt was mumbling and was difficult to understand. RN provided pt with gingerale and a straw but she had difficulty bringing the straw to her mouth. Pt kept her eyes closed and was nodding off.
[2023-01-13] MEDS: Prazosin HCL 1 MG CAPSULE 2 MG PO (21:14)
[2023-01-13] MEDS: Melatonin 3 MG TABLET PO (21:14)
[2023-01-13] MEDS: Mirtazapine 30 MG TABLET PO (21:14)
[2023-01-13 21:16] VITALS: BP 116/60; PULSE 90; TEMP 36.9; O2SAT 98
[2023-01-14 04:36] LABS: Amphetamine Screen Urine Not Detected (Not Detect); Barbiturates, Urine Not Detected (Not Detect); Benzodiazepines Screen Urine POSITIVE (Not Detect); Cannabinoid Screen Urine Not Detected (Not Detect); Cocaine Screen Urine POSITIVE (Not Detect); Fentanyl, urine Not Detected (Not Detect); Opiate Screen Urine Not Detected (Not Detect); Phencyclidine Screen Urine Not Detected (Not Detect)
[2023-01-14] MEDS: Omeprazole 40 MG CAPSULE.DR PO (05:53)
[2023-01-14] MEDS: Folic Acid 1 MG TABLET PO (10:30)
[2023-01-14] MEDS: methADONE HCl 20 MG/2 ML ORAL.CONC 10 MG PO ×2 (10:31→13:08)
[2023-01-14 10:42] VITALS: BP 98/60; PULSE 69; TEMP 36.4; O2SAT 100
--- NOTE | 2023-01-14 13:34 | P.PNPSI_ITS ---
Subjective Subjective Date of Service: 01/14/23 Reason For Visit: SI/depression Interim History: pt seen with JOSEPHINE jesus. and JOSEPHINE express concern for sedation. pt denies substantial sedation yesterday, ultimately seems to tacitly accept it, blaming depakote by the end of the interaction. pt was informed methadone was being held this morning, along with numerous other sedating medications (baclofen, hydroxyzine, prazosin), and VPA being rescheduled to all at HS. compromise made to dose methadone 10 mg TID today as long as pt did not become sedated. per staff, dep/anx 9. extremely sedated yesterday. falling asleep in various places on unit throughout the day. slept only 1 hour last night. Mental Status Exam Mental Status Exam Narrative: calm, cooperative. no PMA/PMR. speech nml rate, amount, loudness, tone, latency. thoughts linear and logical. affect constricted, normo-intense, non- labile. no SI/HI/AVH expressed. Diagnostics Vital Signs (24Hr): Vital Signs - 24 hr 01/13/23 21:16 01/14/23 10:42 Temperature 98.5 F 97.6 F Pulse Rate 90 69 Blood Pressure 116/60 98/60 Pulse Oximetry 98 100 Oxygen Delivery Method Room Air Room Air BMI result Body Mass Index 23.2 Labs 01/09/23 12:46 01/10/23 07:04 Labs: Laboratory Results - last 48 hr 01/14/23 04:05 Urine Opiates Screen Not Detected Urine Fentanyl Screen Not Detected Ur Barbiturates Screen Not Detected Ur Phencyclidine Scrn Not Detected Ur Amphetamines Screen Not Detected U Benzodiazepines Scrn POSITIVE H Urine Cocaine Screen POSITIVE H U Marijuana (THC) Screen Not Detected Imaging Radiology Impressions: ITS Impressions Abdomen X-Ray 01/13/23 14:52 IMPRESSION: No foreign body. Constipation. Medications Medications Current Medications Al Hydroxide/Mg Hydroxide (Magnesium Hydrox/Alum Hydrox 30 Ml Oral.Susp) 30 ml PO Q6H PRN PRN Reason: Heartburn/Nausea Last Admin: 01/10/23 09:42 Dose: 30 ml Baclofen (Baclofen 10 Mg Tablet) 10 mg PO TID [facility] Last Admin: 01/11/23 22:27 Dose: Not Given Divalproex Sodium (Divalproex Sodium 500 Mg Tablet.) 1,000 mg PO BEDTIME [facility] Folic Acid (Folic Acid 1 Mg Tablet) 1 mg PO DAILY [facility] Last Admin: 01/14/23 10:30 Dose: 1 mg Gabapentin (Gabapentin 300 Mg Capsule) 300 mg PO BEDTIME [facility] Last Admin: 01/11/23 22:27 Dose: Not Given Hydroxyzine HCl (Hydroxyzine Hcl 50 Mg Tablet) 50 mg PO TID PRN PRN Reason: anxiety Last Admin: 01/11/23 00:19 Dose: 50 mg Ibuprofen (Ibuprofen 600 Mg Tablet) 600 mg PO Q6H PRN PRN Reason: Pain, Moderate(Pain Scale 4-6) Magnesium Hydroxide (Milk Of Magnesia 30 Ml Oral.Susp) 30 ml PO DAILY PRN PRN Reason: Constipation Melatonin (Melatonin 3 Mg Tablet) 3 mg PO BEDTIME PRN PRN Reason: insomnia Last Admin: 01/13/23 21:14 Dose: 3 mg Methadone HCl (Methadone Hcl 20 Mg/2 Ml Oral.Conc) 30 mg PO DAILY [facility] Last Admin: 01/13/23 09:02 Dose: 30 mg Mirtazapine (Mirtazapine 30 Mg Tablet) 30 mg PO BEDTIME [facility] Last Admin: 01/13/23 21:14 Dose: 30 mg Naloxone HCl (Naloxone Hcl Nasal 4 Mg [place]) 4 mg NOSTRILALT ONCE PRN PRN Reason: opioid overdose Nicotine Polacrilex (Nicotine Polacrilex 2 Mg Gum) 2 mg BUCCAL Q2H PRN PRN Reason: Nicotine Cravings Omeprazole (Omeprazole 40 Mg Capsule.) 40 mg PO BID@0630,1630 [facility] Last Admin: 01/14/23 05:53 Dose: 40 mg Ondansetron HCl (Ondansetron Odt 4 Mg Tab.Rapdis) 4 mg TRANSLINGU Q6H PRN PRN Reason: Nausea Last Admin: 01/12/23 14:17 Dose: 4 mg Prazosin HCl (Prazosin Hcl 1 Mg Capsule) 1 mg PO BID@0900,1500 [facility]; Protocol Last Admin: 01/13/23 15:55 Dose: Not Given Prazosin HCl (Prazosin Hcl 1 Mg Capsule) 2 mg PO BEDTIME [facility]; Protocol Last Admin: 01/13/23 21:14 Dose: 2 mg Allergies Allergies Allergy/AdvReac Type Severity Reaction Status Date / Time acetaminophen [From VICODIN] Allergy Unknown RASH Verified 01/09/23 20:59 hydrocodone [From VICODIN] Allergy Unknown RASH Verified 01/09/23 20:59 clonidine AdvReac Unknown Unknown Verified 01/10/23 01:05 Assessment & Plan Assessment & Plan (1) Depression: Status: Acute Code(s): F32.A - Depression, unspecified (2) Cocaine use disorder: Status: Acute Code(s): F14.10 - Cocaine abuse, uncomplicated (3) Opioid use disorder: Status: Acute Code(s): F11.90 - Opioid use, unspecified, uncomplicated (4) Alcohol use disorder: Status: Acute Code(s): F10.90 - Alcohol use, unspecified, uncomplicated Plan 01/10: ativan per CIWA for AUD and + benzo utox. start methadone 30 mg daily for opioid use disorder. supportive care for cocaine use. restart meds for regulation of mood. refer for CSS. 01/11: calm, cooperative. sleepy, 2/2 not sleeping during cocaine run. reporting some Sx of alcohol withdrawal, but will start ativan taper today. DC lexapro per pt request. 01/12: ativan taper DCed due to reports of over-sedation yesterday. continue methadone 30 and other medications for now and observe for level of consciousness. pt reporting feeling in opioid withdrawal today; seems more awake and alert than yesterday. 01/13: very sedated. room and person NEG for contraband. 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 utox ordered. HOLD sedating medications. 01/14: xray abd NEG. utox unenlightening. methadone being split into TID dosing for today, sedating meds being held, VPA rescheuled to all be at HS. Reason for continued inpatient stay Substantial Risk for: inability to function and rapid decompensation Time Spent With Patient Time: Total time managing care of this patient today __35__ minutes.
[2023-01-14] MEDS: Ibuprofen 600 MG TABLET PO (14:10)
[2023-01-14 14:40] LABS: MANUAL DIFF FLAG NO
[2023-01-14 14:45] LABS: Basophils Percent Auto 0.2 % (0-2); Eosinophils Absolute Auto 0.3 X10*3/uL (0.0-0.4); Eosinophils Percent Auto 6.2 % (0-4); Hematocrit 36.4 % (37.0-47.0); Hemoglobin 11.3 g/dl (12.0-16.0); Imm Gran Abs Auto 0.01 X10*3/uL (0.00-0.03); Imm Gran Pct Auto 0.2 % (0.0-0.4); Lymphocytes Absolute Auto 1.6 X10*3/uL (1.2-4.9); Lymphocytes Percent Auto 40.8 % (20-40); Mean Corpuscular Hemoglobin 29.6 pg (27.0-33.0); Mean Corpuscular Volume 95.3 fL (80.0-98.0); Monocytes Absolute Auto 0.8 X10*3/uL (0.1-1.2); Monocytes Percent Auto 18.7 % (2-11); Neutrophils Absolute Auto 1.4 x10*3/uL (2.0-8.3); Neutrophils Percent Auto 33.9 % (45-73); Platelet Count 206 X10*3/uL (160-400); Red Blood Count 3.82 X10*6/uL (4.20-5.50); Red Cell Distribution Width 13.2 % (11.0-16.0)
[2023-01-14 14:50] LABS: Ammonia 27 umol/L (13-55)
[2023-01-14 14:57] LABS: Valproate 49.2 mcg/mL (50.0-100.0)
[2023-01-14 15:00] LABS: Alanine Aminotransferase 17 U/L (0-31); Albumin Level 3.7 g/dL (3.5-5.0); Alkaline Phosphatase 43 U/L (39-117); Anion Gap 8 (12-20); Aspartate Amino Transferase 37 U/L (5-31); Bilirubin Total 0.2 mg/dL (0.0-1.0); Blood Urea Nitrogen 13 mg/dL (9-16); Calcium 9.2 mg/dL (8.4-10.2); Carbon Dioxide 35 mmol/L (22-29); Chloride 103 mmol/L (96-108); Creatinine Clr Calc Pharmacy 97.3; Estimated Glomerular Filt Rate > 60; Glucose Random 99 mg/dL (60-115); Potassium 4.7 mmol/L (3.3-5.1); Sodium 141 mmol/L (135-145); Total Protein 6.2 g/dL (6.5-8.0)
--- NOTE | 2023-01-14 18:00 | PC.NURSE ---
Pt received 10mg methadone at 1031 and 1308. Pt was awake and attended groups during that time. At 1400 pt appeared sedated while she was on the unit phone. She had her eyes closed with the phone in her hand. Dr. [place] aware and cancelled order for 10mg methadone at 1800. Pt got up and sat at the kitchen table to eat cereal when she had her eyes closed again for several minutes. When RN brought this to pt's attention, she began crying and said I'm not sedated, I've just been thinking about my son who was murdered and how I have no one in my life to talk about my grief with. When I have my eyes closed that's what's happening. Pt remained in the milieu from [id number], occasionally closing her eyes. Pt became more alert and agitated several times after dinner saying when am I taking my methadone? You guys aren't doing your jobs and you're going to make me go into withdrawals. I don't understand what the problem is, you guys say I look like I'm overdosing but it's impossible for anyone to keep their eyes open while they're on methadone.
[2023-01-14 20:35] VITALS: BP 124/68; PULSE 70; RESP 16; TEMP 36.2; O2SAT 100
[2023-01-14] MEDS: Melatonin 3 MG TABLET PO (20:42)
[2023-01-14] MEDS: Divalproex Sodium 500 MG TABLET.DR 1000 MG PO (20:42)
[2023-01-14] MEDS: Mirtazapine 30 MG TABLET PO (20:42)
[2023-01-14] MEDS: Gabapentin 300 MG CAPSULE PO (20:42)
[2023-01-14] MEDS: Prazosin HCL 1 MG CAPSULE 2 MG PO (20:43)
[2023-01-14] MEDS: Magnesium Hydrox/Alum Hydrox 30 ML ORAL.SUSP PO (23:35)
[2023-01-15] MEDS: Omeprazole 40 MG CAPSULE.DR PO ×2 (06:31→16:15)
[2023-01-15 08:35] VITALS: BP 100/55; PULSE 77; RESP 18; TEMP 36.6; O2SAT 100
[2023-01-15] MEDS: Folic Acid 1 MG TABLET PO (09:26)
[2023-01-15] MEDS: methADONE HCl 20 MG/2 ML ORAL.CONC 10 MG PO (09:58)
[2023-01-15] MEDS: Loperamide HCl 2 MG CAPSULE PO (12:35)
--- NOTE | 2023-01-15 15:07 | P.PNPSI_ITS ---
Subjective Subjective Date of Service: 01/15/23 Reason For Visit: SI/depression Interim History: cooperative. appears sedated but not nearly as much so as recent days. c/o withdrawal Sx, incl diarrhea. room smells of urine, pt states she was incontinent in her bed. agrees to reinstate COWS with methadone PRN. per staff, on 5 min checks still due to sedation. more alert, visible yesterday morning. sedated in the afternoon. up and down throughout the night. Mental Status Exam Mental Status Exam Narrative: calm, cooperative. no PMA/PMR. speech decr rate, amount, loudness, tone. incr latency. thoughts linear and logical. affect constricted, normo-intense, non- labile. no SI/HI/AVH expressed. Diagnostics Vital Signs (24Hr): Vital Signs - 24 hr 01/14/23 20:35 01/15/23 08:35 Temperature 97.2 F 97.8 F Pulse Rate 70 77 Respiratory Rate 16 18 Blood Pressure 124/68 100/55 L Pulse Oximetry 100 100 Oxygen Delivery Method Room Air Room Air BMI result Body Mass Index 23.2 Labs 01/14/23 14:30 01/14/23 14:30 Labs: Laboratory Results - last 48 hr 01/14/23 01/14/23 01/14/23 04:05 14:29 14:30 WBC 4.0 L RBC 3.82 L Hgb 11.3 L Hct 36.4 L MCV 95.3 D MCH 29.6 MCHC 31.0 RDW 13.2 Plt Count 206 MPV 10.0 Immature Gran % (Auto) 0.2 Neut % (Auto) 33.9 L Lymph % (Auto) 40.[address] [facility] % (Auto) 18.7 H Eos % (Auto) 6.2 H Baso % (Auto) 0.2 Lymph # (Auto) 1.6 [facility] # (Auto) 0.8 Eos # (Auto) 0.3 Baso # (Auto) 0.0 Abs Immat Gran (auto) 0.01 Absolute Neuts (auto) 1.4 L Absolute Nucleated RBC 0.000 Nucleated RBC % (auto) 0.0 Sodium Potassium Chloride Carbon Dioxide Anion Gap BUN Creatinine Estim Creat Clear Calc Estimated GFR Random Glucose Calcium Total Bilirubin AST ALT Alkaline Phosphatase Ammonia 27 Total Protein Albumin Urine Opiates Screen Not Detected Urine Fentanyl Screen Not Detected Ur Barbiturates Screen Not Detected Valproic Acid Ur Phencyclidine Scrn Not Detected Ur Amphetamines Screen Not Detected U Benzodiazepines Scrn POSITIVE H Urine Cocaine Screen POSITIVE H U Marijuana (THC) Screen Not Detected 01/14/23 01/14/23 14:30 14:30 WBC RBC Hgb Hct MCV MCH MCHC RDW Plt Count MPV Immature Gran % (Auto) Neut % (Auto) Lymph % (Auto) [facility] % (Auto) Eos % (Auto) Baso % (Auto) Lymph # (Auto) [facility] # (Auto) Eos # (Auto) Baso # (Auto) Abs Immat Gran (auto) Absolute Neuts (auto) Absolute Nucleated RBC Nucleated RBC % (auto) Sodium 141 Potassium 4.7 D Chloride 103 Carbon Dioxide 35 H Anion Gap 8 L BUN 13 Creatinine 0.75 Estim Creat Clear Calc 97.3 Estimated GFR > 60 Random Glucose 99 Calcium 9.2 D Total Bilirubin 0.2 AST 37 H ALT 17 Alkaline Phosphatase 43 Ammonia Total Protein 6.2 L Albumin 3.7 Urine Opiates Screen Urine Fentanyl Screen Ur Barbiturates Screen Valproic Acid 49.2 L Ur Phencyclidine Scrn Ur Amphetamines Screen U Benzodiazepines Scrn Urine Cocaine Screen U Marijuana (THC) Screen Imaging Radiology Impressions: ITS Impressions Abdomen X-Ray 01/13/23 14:52 IMPRESSION: No foreign body. Constipation. Medications Medications Current Medications Al Hydroxide/Mg Hydroxide (Magnesium Hydrox/Alum Hydrox 30 Ml Oral.Susp) 30 ml PO Q6H PRN PRN Reason: Heartburn/Nausea Last Admin: 01/14/23 23:35 Dose: 30 ml Baclofen (Baclofen 10 Mg Tablet) 10 mg PO TID [facility] Last Admin: 01/11/23 22:27 Dose: Not Given Divalproex Sodium (Divalproex Sodium 500 Mg Tablet.) 1,000 mg PO BEDTIME [facility] [place] Last Admin: 01/14/23 20:42 Dose: 1,000 mg Folic Acid (Folic Acid 1 Mg Tablet) 1 mg PO DAILY [facility] [place] Last Admin: 01/15/23 09:26 Dose: 1 mg Gabapentin (Gabapentin 300 Mg Capsule) 300 mg PO BEDTIME [facility] [place] Last Admin: 01/14/23 20:42 Dose: 300 mg Hydroxyzine HCl (Hydroxyzine Hcl 50 Mg Tablet) 50 mg PO TID PRN PRN Reason: anxiety Last Admin: 01/11/23 00:19 Dose: 50 mg Ibuprofen (Ibuprofen 600 Mg Tablet) 600 mg PO Q6H PRN PRN Reason: Pain, Moderate(Pain Scale 4-6) Last Admin: 01/14/23 14:10 Dose: 600 mg Loperamide HCl (Loperamide Hcl 2 Mg Capsule) 2 mg PO Q4H PRN PRN Reason: Diarrhea Last Admin: 01/15/23 12:35 Dose: 2 mg Magnesium Hydroxide (Milk Of Magnesia 30 Ml Oral.Susp) 30 ml PO DAILY PRN PRN Reason: Constipation Melatonin (Melatonin 3 Mg Tablet) 3 mg PO BEDTIME PRN PRN Reason: insomnia Last Admin: 01/14/23 20:42 Dose: 3 mg Methadone HCl (Methadone Hcl 20 Mg/2 Ml Oral.Conc) 30 mg PO DAILY [facility] Last Admin: 01/13/23 09:02 Dose: 30 mg Methadone HCl (Methadone Hcl 20 Mg/2 Ml Oral.Conc) 5 mg PO Q8H PRN PRN Reason: COWS > 8 Mirtazapine (Mirtazapine 30 Mg Tablet) 30 mg PO BEDTIME [facility] [place] Last Admin: 01/14/23 20:42 Dose: 30 mg Naloxone HCl (Naloxone Hcl Nasal 4 Mg [place]) 4 mg NOSTRILALT ONCE PRN PRN Reason: opioid overdose Nicotine Polacrilex (Nicotine Polacrilex 2 Mg Gum) 2 mg BUCCAL Q2H PRN PRN Reason: Nicotine Cravings Olanzapine (Olanzapine 5 Mg Tablet) 5 mg PO DAILY PRN PRN Reason: agitation Omeprazole (Omeprazole 40 Mg Capsule.Dr) 40 mg PO BID@0630,1630 [facility] [place] Last Admin: 01/15/23 06:31 Dose: 40 mg Ondansetron HCl (Ondansetron Odt 4 Mg Tab.Rapdis) 4 mg TRANSLINGU Q6H PRN PRN Reason: Nausea Last Admin: 01/12/23 14:17 Dose: 4 mg Prazosin HCl (Prazosin Hcl 1 Mg Capsule) 1 mg PO BID@0900,1500 [facility] [place]; Protocol Last Admin: 01/13/23 15:55 Dose: Not Given Prazosin HCl (Prazosin Hcl 1 Mg Capsule) 2 mg PO BEDTIME [facility]; Protocol Last Admin: 01/14/23 20:43 Dose: 2 mg Allergies Allergies Allergy/AdvReac Type Severity Reaction Status Date / Time acetaminophen [From VICODIN] Allergy Unknown RASH Verified 01/09/23 20:59 hydrocodone [From VICODIN] Allergy Unknown RASH Verified 01/09/23 20:59 clonidine AdvReac Unknown Unknown Verified 01/10/23 01:05 Assessment & Plan Assessment & Plan (1) Depression: Status: Acute Code(s): F32.A - Depression, unspecified (2) Cocaine use disorder: Status: Acute Code(s): F14.10 - Cocaine abuse, uncomplicated (3) Opioid use disorder: Status: Acute Code(s): F11.90 - Opioid use, unspecified, uncomplicated (4) Alcohol use disorder: Status: Acute Code(s): F10.90 - Alcohol use, unspecified, uncomplicated Plan 01/10: ativan per CIWA for AUD and + benzo utox. start methadone 30 mg daily for opioid use disorder. supportive care for cocaine use. restart meds for regulation of mood. refer for CSS. 01/11: calm, cooperative. sleepy, 2/2 not sleeping during cocaine run. reporting some Sx of alcohol withdrawal, but will start ativan taper today. DC lexapro per pt request. 01/12: ativan taper DCed due to reports of over-sedation yesterday. continue methadone 30 and other medications for now and observe for level of consciousness. pt reporting feeling in opioid withdrawal today; seems more awake and alert than yesterday. 01/13: very sedated. room and person NEG for contraband. 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 utox ordered. HOLD sedating medications. 01/14: xray abd NEG. utox unenlightening. methadone being split into TID dosing for today, sedating meds being held, VPA rescheduled to all be at HS. 01/15: less sedated this morning, c/o withdrawal Sx. COWs with methadone 5 PRN reinstated. VPA low at 49.2. ammonia WNL. schedule methadone 10 mg daily with PRNs available for now, until pt's level on consciousness more consistent. T/C increase in VPA dosing at HS as pt continues to have broken sleep. Reason for continued inpatient stay Substantial Risk for: inability to function and rapid decompensation Time Spent With Patient Time: Total time managing care of this patient today __35__ minutes.
[2023-01-15 16:00] VITALS: PULSE 81
[2023-01-15 16:03] VITALS: PULSE 81; RESP 18
[2023-01-15] MEDS: methADONE HCl 20 MG/2 ML ORAL.CONC 5 MG PO ×2 (16:15→22:39)
[2023-01-15] MEDS: Gabapentin 300 MG CAPSULE PO (21:10)
[2023-01-15] MEDS: Divalproex Sodium 500 MG TABLET.DR 1000 MG PO (21:10)
[2023-01-15 21:37] LABS: Appearance Urine Clear; Color Urine Yellow; Glucose Urine UA Negative (Negative); Leukocyte Esterase Urine Negative (Negative); Nitrite Urine Negative (Negative); UMIC TRIGGER UACC YES; Urine Blood Small (1+) (Negative); Urine Ketones Negative (Negative); Urine Protein Negative (Neg-Trace)
[2023-01-15 21:48] LABS: Bacteria Urine Trace (None Seen); Hyaline Casts Urine 0-2 /LPF (0-2); RBC Urine 0-2 /HPF (0-2); WBC Urine 0-5 /HPF (0-5)
[2023-01-15 22:35] VITALS: BP 111/61; PULSE 66; TEMP 36.7; O2SAT 100
[2023-01-15] MEDS: Prazosin HCL 1 MG CAPSULE 2 MG PO (22:40)
[2023-01-15] MEDS: Mirtazapine 30 MG TABLET PO (22:41)
[2023-01-15] MEDS: Ibuprofen 600 MG TABLET PO (22:41)
[2023-01-16] MEDS: Melatonin 3 MG TABLET PO ×2 (00:15→23:03)
[2023-01-16] MEDS: OLANZapine 5 MG TABLET PO ×2 (00:15→12:43)
[2023-01-16] MEDS: Omeprazole 40 MG CAPSULE.DR PO ×2 (05:33→16:48)
[2023-01-16 09:00] VITALS: BP 118/64; PULSE 85; RESP 18; TEMP 36.7; O2SAT 100
[2023-01-16] MEDS: methADONE HCl 20 MG/2 ML ORAL.CONC 10 MG PO (09:14)
[2023-01-16] MEDS: Folic Acid 1 MG TABLET PO (09:14)
--- NOTE | 2023-01-16 14:16 | HO.PSYCHPN ---
Subjective Subjective Date of Service: 01/16/23 Reason For Visit: SI/depression Interim History: The nursing staff reported the patient had been receiving methadone but still he scored in the cows. She looks much better come pleasant and cooperative denies suicidal ideation. On interview the patient reports that she is feeling still anxious with withdrawal symptoms of opioids. No active suicidal ideation or psychotic symptoms. She agreed to continue on cows and continue the titration of methadone. Mental Status Exam Mental Status Exam Patient Appearance: Appropriate Patient Orientation: Person and Situation Level of Consciousness: Awake Patient Behavior: Guarded Mood Description: Withdrawn Affect Description: Constricted Patient Cognition Impaired: Yes Ability to Follow Directions: Good Speech Pattern: Clear Hallucinations: None Delusions: Not Present Thought Process: Evasive and Slowed Thinking Thought Content: positive for [place] Judgement: Fair Diagnostics Vital Signs (24Hr): Vital Signs - 24 hr 01/15/23 16:03 01/15/23 22:35 01/16/23 09:00 Temperature 98.0 F 98.0 F Pulse Rate 81 66 85 Respiratory Rate 18 18 Blood Pressure 111/61 118/64 Pulse Oximetry 100 100 Oxygen Delivery Method Room Air Room Air BMI result Body Mass Index 23.2 Labs 01/14/23 14:30 01/14/23 14:30 Labs: Laboratory Results - last 48 hr 01/14/23 01/14/23 01/14/23 14:29 14:30 14:30 WBC 4.0 L RBC 3.82 L Hgb 11.3 L Hct 36.4 L MCV 95.3 D MCH 29.6 MCHC 31.0 RDW 13.2 Plt Count 206 MPV 10.0 Immature Gran % (Auto) 0.2 Neut % (Auto) 33.9 L Lymph % (Auto) 40.8 H [place] % (Auto) 18.7 H Eos % (Auto) 6.2 H Baso % (Auto) 0.2 Lymph # (Auto) 1.6 [place] # (Auto) 0.8 Eos # (Auto) 0.3 Baso # (Auto) 0.0 Abs Immat Gran (auto) 0.01 Absolute Neuts (auto) 1.4 L Absolute Nucleated RBC 0.000 Nucleated RBC % (auto) 0.0 Sodium 141 Potassium 4.7 D Chloride 103 Carbon Dioxide 35 H Anion Gap 8 L BUN 13 Creatinine 0.75 Estim Creat Clear Calc 97.3 Estimated GFR > 60 Random Glucose 99 Calcium 9.2 D Total Bilirubin 0.2 AST 37 H ALT 17 Alkaline Phosphatase 43 Ammonia 27 Total Protein 6.2 L Albumin 3.7 Urine Color Urine Appearance Urine pH Ur Specific [place] Urine Protein Urine Glucose (UA) Urine Ketones Urine Blood Urine Nitrite Ur Leukocyte Esterase Urine RBC Urine WBC Ur Squamous Epith Cells Urine Bacteria Hyaline Casts Valproic Acid 01/14/23 01/15/23 14:30 21:20 WBC RBC Hgb Hct MCV MCH MCHC RDW Plt Count MPV Immature Gran % (Auto) Neut % (Auto) Lymph % (Auto) [place] % (Auto) Eos % (Auto) Baso % (Auto) Lymph # (Auto) [place] # (Auto) Eos # (Auto) Baso # (Auto) Abs Immat Gran (auto) Absolute Neuts (auto) Absolute Nucleated RBC Nucleated RBC % (auto) Sodium Potassium Chloride Carbon Dioxide Anion Gap BUN Creatinine Estim Creat Clear Calc Estimated GFR Random Glucose Calcium Total Bilirubin AST ALT Alkaline Phosphatase Ammonia Total Protein Albumin Urine Color Yellow Urine Appearance Clear Urine pH 7.0 Ur Specific [place] 1.020 Urine Protein Negative Urine Glucose (UA) Negative Urine Ketones Negative Urine Blood Small (1+) H Urine Nitrite Negative Ur Leukocyte Esterase Negative Urine RBC 0-2 Urine WBC 0-5 Ur Squamous Epith Cells 3-5 Urine Bacteria Trace Hyaline Casts 0-2 Valproic Acid 49.2 L Imaging Radiology Impressions: ITS Impressions Abdomen X-Ray 01/13/23 14:52 IMPRESSION: No foreign body. Constipation. Medications Medications Current Medications Al Hydroxide/Mg Hydroxide (Magnesium Hydrox/Alum Hydrox 30 Ml Oral.Susp) 30 ml PO Q6H PRN PRN Reason: Heartburn/Nausea Last Admin: 01/14/23 23:35 Dose: 30 ml Baclofen (Baclofen 10 Mg Tablet) 10 mg PO TID [facility] Last Admin: 01/11/23 22:27 Dose: Not Given Divalproex Sodium (Divalproex Sodium 500 Mg Tablet.Dr) 1,000 mg PO BEDTIME [facility] Last Admin: 01/15/23 21:10 Dose: 1,000 mg Folic Acid (Folic Acid 1 Mg Tablet) 1 mg PO DAILY [facility] Last Admin: 01/16/23 09:14 Dose: 1 mg Gabapentin (Gabapentin 300 Mg Capsule) 300 mg PO BEDTIME [facility] Last Admin: 01/15/23 21:10 Dose: 300 mg Hydroxyzine HCl (Hydroxyzine Hcl 50 Mg Tablet) 50 mg PO TID PRN PRN Reason: anxiety Last Admin: 01/11/23 00:19 Dose: 50 mg Ibuprofen (Ibuprofen 600 Mg Tablet) 600 mg PO Q6H PRN PRN Reason: Pain, Moderate(Pain Scale 4-6) Last Admin: 01/15/23 22:41 Dose: 600 mg Loperamide HCl (Loperamide Hcl 2 Mg Capsule) 2 mg PO Q4H PRN PRN Reason: Diarrhea Last Admin: 01/15/23 12:35 Dose: 2 mg Magnesium Hydroxide (Milk Of Magnesia 30 Ml Oral.Susp) 30 ml PO DAILY PRN PRN Reason: Constipation Melatonin (Melatonin 3 Mg Tablet) 3 mg PO BEDTIME PRN PRN Reason: insomnia Last Admin: 01/16/23 00:15 Dose: 3 mg Methadone HCl (Methadone Hcl 20 Mg/2 Ml Oral.Conc) 5 mg PO Q8H PRN PRN Reason: COWS > 8 Last Admin: 01/15/23 22:39 Dose: 5 mg Methadone HCl (Methadone Hcl 20 Mg/2 Ml Oral.Conc) 10 mg PO DAILY [facility] Last Admin: 01/16/23 09:14 Dose: 10 mg Mirtazapine (Mirtazapine 30 Mg Tablet) 30 mg PO BEDTIME [facility] Last Admin: 01/15/23 22:41 Dose: 30 mg Naloxone HCl (Naloxone Hcl Nasal 4 Mg [place]) 4 mg NOSTRILALT ONCE PRN PRN Reason: opioid overdose Nicotine Polacrilex (Nicotine Polacrilex 2 Mg Gum) 2 mg BUCCAL Q2H PRN PRN Reason: Nicotine Cravings Olanzapine (Olanzapine 5 Mg Tablet) 5 mg PO DAILY PRN PRN Reason: agitation Last Admin: 01/16/23 12:43 Dose: 5 mg Omeprazole (Omeprazole 40 Mg Capsule.Dr) 40 mg PO BID@0630,1630 [facility] Last Admin: 01/16/23 05:33 Dose: 40 mg Ondansetron HCl (Ondansetron Odt 4 Mg Tab.Rapdis) 4 mg TRANSLINGU Q6H PRN PRN Reason: Nausea Last Admin: 01/12/23 14:17 Dose: 4 mg Prazosin HCl (Prazosin Hcl 1 Mg Capsule) 1 mg PO BID@0900,1500 [facility]; Protocol Last Admin: 01/13/23 15:55 Dose: Not Given Prazosin HCl (Prazosin Hcl 1 Mg Capsule) 2 mg PO BEDTIME [facility]; Protocol Last Admin: 01/15/23 22:40 Dose: 2 mg Allergies Allergies Allergy/AdvReac Type Severity Reaction Status Date / Time acetaminophen [From VICODIN] Allergy Unknown RASH Verified 01/09/23 20:59 hydrocodone [From VICODIN] Allergy Unknown RASH Verified 01/09/23 20:59 clonidine AdvReac Unknown Unknown Verified 01/10/23 01:05 Assessment & Plan Assessment & Plan (1) Depression: Status: Acute Code(s): F32.A - Depression, unspecified (2) Cocaine use disorder: Status: Acute Code(s): F14.10 - Cocaine abuse, uncomplicated (3) Opioid use disorder: Status: Acute Code(s): F11.90 - Opioid use, unspecified, uncomplicated (4) Alcohol use disorder: Status: Acute Code(s): F10.90 - Alcohol use, unspecified, uncomplicated Plan 01/10: ativan per CIWA for AUD and + benzo utox. start methadone 30 mg daily for opioid use disorder. supportive care for cocaine use. restart meds for regulation of mood. refer for CSS. 01/11: calm, cooperative. sleepy, 2/2 not sleeping during cocaine run. reporting some Sx of alcohol withdrawal, but will start ativan taper today. DC lexapro per pt request. 01/12: ativan taper DCed due to reports of over-sedation yesterday. continue methadone 30 and other medications for now and observe for level of consciousness. pt reporting feeling in opioid withdrawal today; seems more awake and alert than yesterday. 01/13: very sedated. room and person NEG for contraband. 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 utox ordered. HOLD sedating medications. 01/14: xray abd NEG. utox unenlightening. methadone being split into TID dosing for today, sedating meds being held, VPA rescheduled to all be at HS. 01/15: less sedated this morning, c/o withdrawal Sx. COWs with methadone 5 PRN reinstated. VPA low at 49.2. ammonia WNL. schedule methadone 10 mg daily with PRNs available for now, until pt's level on consciousness more consistent. T/C increase in VPA dosing at HS as pt continues to have broken sleep. / continue COWS Reason for continued inpatient stay Substantial Risk for: inability to function, rapid decompensation and med/psych decompensation Time Spent With Patient Time: Total time managing care of this patient today __20__ minutes.
[2023-01-16] MEDS: methADONE HCl 20 MG/2 ML ORAL.CONC 5 MG PO ×2 (16:49→23:03)
[2023-01-16] MEDS: Divalproex Sodium 500 MG TABLET.DR 1000 MG PO (21:30)
[2023-01-16] MEDS: Gabapentin 300 MG CAPSULE PO (21:30)
[2023-01-16] MEDS: Prazosin HCL 1 MG CAPSULE 2 MG PO (23:03)
[2023-01-16] MEDS: Mirtazapine 30 MG TABLET PO (23:03)
[2023-01-16 23:08] VITALS: BP 102/60; PULSE 67; TEMP 36.6; O2SAT 100
--- NOTE | 2023-01-16 23:26 | PC.NURSE ---
retracted 3 day notice
[2023-01-17] MEDS: Omeprazole 40 MG CAPSULE.DR PO ×2 (06:21→17:03)
[2023-01-17] MEDS: OLANZapine 5 MG TABLET PO ×2 (06:21→15:35)
[2023-01-17 09:00] VITALS: BP 98/56; PULSE 77; RESP 16; TEMP 36.4; O2SAT 98
[2023-01-17] MEDS: methADONE HCl 20 MG/2 ML ORAL.CONC 10 MG PO (09:11)
[2023-01-17] MEDS: Folic Acid 1 MG TABLET PO (09:12)
--- NOTE | 2023-01-17 11:32 | HO.PSYCHPN ---
Subjective Subjective Date of Service: 01/17/23 Reason For Visit: SI/depression Subjective Notes: Conditional Voluntary Interim History: Nursing staff reported the patient still on cows, she had been not sedated but her mood remains more labile with frequent nightmares. She slept poorly last night. On interview the patient reported that she is not feeling well that she requested more mental and she is having frequent flashbacks and nightmares. She agreed to increase prazosin at night and we will increase her methadone up to 15 mg in the morning. Historically she used to have 30 mg every day as per her report. Mental Status Exam Mental Status Exam Patient Appearance: Disheveled Patient Orientation: Person and Situation Level of Consciousness: Awake and Appropriate Patient Behavior: Passive and Restless Mood Description: Withdrawn Affect Description: Constricted Ability to Follow Directions: Good Speech Pattern: Clear Hallucinations: None Delusions: Not Present Thought Process: Racing Thought Content: positive for [place] and positive for [place] Judgement: Fair Diagnostics Vital Signs (24Hr): Vital Signs - 24 hr 01/16/23 23:08 Temperature 97.9 F Pulse Rate 67 Blood Pressure 102/60 Pulse Oximetry 100 Oxygen Delivery Method Room Air BMI result Body Mass Index 23.2 Labs 01/14/23 14:30 01/14/23 14:30 Labs: Laboratory Results - last 48 hr 01/15/23 21:20 Urine Color Yellow Urine Appearance Clear Urine pH 7.0 Ur Specific [place] 1.020 Urine Protein Negative Urine Glucose (UA) Negative Urine Ketones Negative Urine Blood Small (1+) H Urine Nitrite Negative Ur Leukocyte Esterase Negative Urine RBC 0-2 Urine WBC 0-5 Ur Squamous Epith Cells 3-5 Urine Bacteria Trace Hyaline Casts 0-2 Imaging Radiology Impressions: ITS Impressions Abdomen X-Ray 01/13/23 14:52 IMPRESSION: No foreign body. Constipation. Medications Medications Current Medications Al Hydroxide/Mg Hydroxide (Magnesium Hydrox/Alum Hydrox 30 Ml Oral.Susp) 30 ml PO Q6H PRN PRN Reason: Heartburn/Nausea Last Admin: 01/14/23 23:35 Dose: 30 ml Baclofen (Baclofen 10 Mg Tablet) 10 mg PO TID [facility] Last Admin: 01/11/23 22:27 Dose: Not Given Divalproex Sodium (Divalproex Sodium 500 Mg Tablet.) 1,000 mg PO BEDTIME [facility] Last Admin: 01/16/23 21:30 Dose: 1,000 mg Folic Acid (Folic Acid 1 Mg Tablet) 1 mg PO DAILY [facility] Last Admin: 01/17/23 09:12 Dose: 1 mg Gabapentin (Gabapentin 300 Mg Capsule) 300 mg PO BEDTIME [facility] Last Admin: 01/16/23 21:30 Dose: 300 mg Hydroxyzine HCl (Hydroxyzine Hcl 50 Mg Tablet) 50 mg PO TID PRN PRN Reason: anxiety Last Admin: 01/11/23 00:19 Dose: 50 mg Ibuprofen (Ibuprofen 600 Mg Tablet) 600 mg PO Q6H PRN PRN Reason: Pain, Moderate(Pain Scale 4-6) Last Admin: 01/15/23 22:41 Dose: 600 mg Loperamide HCl (Loperamide Hcl 2 Mg Capsule) 2 mg PO Q4H PRN PRN Reason: Diarrhea Last Admin: 01/15/23 12:35 Dose: 2 mg Magnesium Hydroxide (Milk Of Magnesia 30 Ml Oral.Susp) 30 ml PO DAILY PRN PRN Reason: Constipation Melatonin (Melatonin 3 Mg Tablet) 3 mg PO BEDTIME PRN PRN Reason: insomnia Last Admin: 01/16/23 23:03 Dose: 3 mg Methadone HCl (Methadone Hcl 20 Mg/2 Ml Oral.Conc) 5 mg PO Q8H PRN PRN Reason: COWS > 8 Last Admin: 01/16/23 23:03 Dose: 5 mg Methadone HCl (Methadone Hcl 20 Mg/2 Ml Oral.Conc) 10 mg PO DAILY [facility] Last Admin: 01/17/23 09:11 Dose: 10 mg Mirtazapine (Mirtazapine 30 Mg Tablet) 30 mg PO BEDTIME [facility] Last Admin: 01/16/23 23:03 Dose: 30 mg Naloxone HCl (Naloxone Hcl Nasal 4 Mg [place]) 4 mg NOSTRILALT ONCE PRN PRN Reason: opioid overdose Nicotine Polacrilex (Nicotine Polacrilex 2 Mg Gum) 2 mg BUCCAL Q2H PRN PRN Reason: Nicotine Cravings Olanzapine (Olanzapine 5 Mg Tablet) 5 mg PO DAILY PRN PRN Reason: agitation Last Admin: 01/17/23 06:21 Dose: 5 mg Omeprazole (Omeprazole 40 Mg Capsule.Dr) 40 mg PO BID@0630,1630 [facility] Last Admin: 01/17/23 06:21 Dose: 40 mg Ondansetron HCl (Ondansetron Odt 4 Mg Tab.Rapdis) 4 mg TRANSLINGU Q6H PRN PRN Reason: Nausea Last Admin: 01/12/23 14:17 Dose: 4 mg Prazosin HCl (Prazosin Hcl 1 Mg Capsule) 1 mg PO BID@0900,1500 [facility]; Protocol Last Admin: 01/13/23 15:55 Dose: Not Given Prazosin HCl (Prazosin Hcl 1 Mg Capsule) 2 mg PO BEDTIME [facility]; Protocol Last Admin: 01/16/23 23:03 Dose: 2 mg Allergies Allergies Allergy/AdvReac Type Severity Reaction Status Date / Time acetaminophen [From VICODIN] Allergy Unknown RASH Verified 01/09/23 20:59 hydrocodone [From VICODIN] Allergy Unknown RASH Verified 01/09/23 20:59 clonidine AdvReac Unknown Unknown Verified 01/10/23 01:05 Assessment & Plan Assessment & Plan (1) Depression: Status: Acute Code(s): F32.A - Depression, unspecified (2) Cocaine use disorder: Status: Acute Code(s): F14.10 - Cocaine abuse, uncomplicated (3) Opioid use disorder: Status: Acute Code(s): F11.90 - Opioid use, unspecified, uncomplicated (4) Alcohol use disorder: Status: Acute Code(s): F10.90 - Alcohol use, unspecified, uncomplicated Plan 01/10: ativan per CIWA for AUD and + benzo utox. start methadone 30 mg daily for opioid use disorder. supportive care for cocaine use. restart meds for regulation of mood. refer for CSS. 01/11: calm, cooperative. sleepy, 2/2 not sleeping during cocaine run. reporting some Sx of alcohol withdrawal, but will start ativan taper today. DC lexapro per pt request. 01/12: ativan taper DCed due to reports of over-sedation yesterday. continue methadone 30 and other medications for now and observe for level of consciousness. pt reporting feeling in opioid withdrawal today; seems more awake and alert than yesterday. 01/13: very sedated. room and person NEG for contraband. 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 utox ordered. HOLD sedating medications. 01/14: xray abd NEG. utox unenlightening. methadone being split into TID dosing for today, sedating meds being held, VPA rescheduled to all be at HS. 01/15: less sedated this morning, c/o withdrawal Sx. COWs with methadone 5 PRN reinstated. VPA low at 49.2. ammonia WNL. schedule methadone 10 mg daily with PRNs available for now, until pt's level on consciousness more consistent. T/C increase in VPA dosing at HS as pt continues to have broken sleep. 01/16 continue COWS 01/17 increase Methadone up to 15 mg po qhs, increase Prazosin at hs. Reason for continued inpatient stay Substantial Risk for: inability to function, rapid decompensation and med/psych decompensation Time Spent With Patient Time: Total time managing care of this patient today __20__ minutes.
[2023-01-17] MEDS: methADONE HCl 20 MG/2 ML ORAL.CONC 5 MG PO ×2 (15:34→23:22)
[2023-01-17] MEDS: Hydrocortisone 1 % Cream 28.35 GM TUBE 1 APPL TOPICAL (19:47)
[2023-01-17] MEDS: Divalproex Sodium 500 MG TABLET.DR 1000 MG PO (20:57)
[2023-01-17] MEDS: Gabapentin 300 MG CAPSULE PO (20:57)
[2023-01-17 23:02] VITALS: PULSE 68
[2023-01-17 23:10] VITALS: BP 122/64; PULSE 68; RESP 18; O2SAT 98
[2023-01-17] MEDS: Prazosin HCL 1 MG CAPSULE 4 MG PO (23:19)
[2023-01-17] MEDS: Mirtazapine 30 MG TABLET PO (23:19)
[2023-01-18] MEDS: OLANZapine 5 MG TABLET PO ×2 (03:05→21:15)
[2023-01-18] MEDS: Omeprazole 40 MG CAPSULE.DR PO ×2 (06:40→17:45)
[2023-01-18 08:10] VITALS: BP 122/55; PULSE 88; RESP 16; TEMP 36.7; O2SAT 99
[2023-01-18] MEDS: Folic Acid 1 MG TABLET PO (08:21)
[2023-01-18] MEDS: methADONE HCl 20 MG/2 ML ORAL.CONC 15 MG PO (08:23)
--- NOTE | 2023-01-18 10:47 | P.PNPSI_ITS ---
Subjective Subjective Date of Service: 01/18/23 Reason For Visit: SI/depression Subjective Notes: Conditional Voluntary Interim History: Pt reports mood is better in that she is less depressed. She denies SI/HI. She reports she is having nightmares but notes that this only happen since her roommate needs a sitter and there is a 3rd person ni their room. She reports having an extra person is triggering past trauma memories. Per nursing, pt slept through the night. No behavioral concerns. Pt reports appetite is good. No s/s of psychosis. Medication Compliance: Yes Review of Systems Constitutional: Reports no additional constitutional complaints, Denies chills, Denies fever(s) and Denies night sweats Eyes: Reports no additional eye complaints, Denies blurry vision, Denies change in vision, Denies diplopia, Denies eye discharge, Denies loss of vision and Denies eye pain Denies dizziness Cardiovascular: Reports no additional cardiovascular complaints, Denies chest pain, Denies lightheadedness, Denies Loss of Consciousness and Denies dyspnea Respiratory: Reports no additional respiratory complaints and Denies dyspnea Gastrointestinal: Reports no additional gastrointestinal complaints, Denies abdominal pain, Denies melena, Denies hematochezia, Denies change in bowel curry bits and Denies change in stool character Musculoskeletal: Reports no additional musculoskeletal complaints, Denies numbness and Denies tingling Denies dizziness, Denies loss of vision, Denies numbness and Denies tingling Psychiatric: Reports anxiety, Reports depression, Denies homicidal ideation and Reports suicidal ideation Endocrine: Reports no additional endocrine complaints Hematologic/Lymphatic: Reports no additional hematologic/lymphatic complaints Allergic/Immunologic: Reports no additional allergic/immunologic complaints Mental Status Exam Mental Status Exam Narrative: Appearance: casually groomed, good hygiene, in NAD Behavior: cooperative Psychomotor: no agitation or retardation noted Speech: clear, normal rate/rhythm/volume, spontaneous TP: linear TC: no psychosis, feeling better, more hopeful Mood: better' Affect: congruent SI: denies HI: denies VH/AH: none Delusions: none Insight/judgment: fair x 2. Memory/cog: alert, oriented x 3. grossly intact to conversational testing. Diagnostics Vital Signs (24Hr): Vital Signs - 24 hr 01/17/23 23:10 Pulse Rate 68 Respiratory Rate 18 Blood Pressure 122/64 Pulse Oximetry 98 Oxygen Delivery Method Room Air BMI result Body Mass Index 23.2 Labs 01/14/23 14:30 01/14/23 14:30 Imaging Radiology Impressions: ITS Impressions Abdomen X-Ray 01/13/23 14:52 IMPRESSION: No foreign body. Constipation. Medications Medications Current Medications Al Hydroxide/Mg Hydroxide (Magnesium Hydrox/Alum Hydrox 30 Ml Oral.Susp) 30 ml PO Q6H PRN PRN Reason: Heartburn/Nausea Last Admin: 01/14/23 23:35 Dose: 30 ml Baclofen (Baclofen 10 Mg Tablet) 10 mg PO TID [facility] Last Admin: 01/11/23 22:27 Dose: Not Given Divalproex Sodium (Divalproex Sodium 500 Mg Tablet.Dr) 1,000 mg PO BEDTIME [facility] Last Admin: 01/17/23 20:57 Dose: 1,000 mg Folic Acid (Folic Acid 1 Mg Tablet) 1 mg PO DAILY [facility] Last Admin: 01/18/23 08:21 Dose: 1 mg Gabapentin (Gabapentin 300 Mg Capsule) 300 mg PO BEDTIME [facility] Last Admin: 01/17/23 20:57 Dose: 300 mg Hydrocortisone (Hydrocortisone 1 % Cream 28.35 Gm Tube) 1 appl TOPICAL BID PRN; Protocol PRN Reason: Itching Last Admin: 01/17/23 19:47 Dose: 1 appl Hydroxyzine HCl (Hydroxyzine Hcl 50 Mg Tablet) 50 mg PO TID PRN PRN Reason: anxiety Last Admin: 01/11/23 00:19 Dose: 50 mg Ibuprofen (Ibuprofen 600 Mg Tablet) 600 mg PO Q6H PRN PRN Reason: Pain, Moderate(Pain Scale 4-6) Last Admin: 01/15/23 22:41 Dose: 600 mg Loperamide HCl (Loperamide Hcl 2 Mg Capsule) 2 mg PO Q4H PRN PRN Reason: Diarrhea Last Admin: 01/15/23 12:35 Dose: 2 mg Magnesium Hydroxide (Milk Of Magnesia 30 Ml Oral.Susp) 30 ml PO DAILY PRN PRN Reason: Constipation Melatonin (Melatonin 3 Mg Tablet) 3 mg PO BEDTIME PRN PRN Reason: insomnia Last Admin: 01/16/23 23:03 Dose: 3 mg Methadone HCl (Methadone Hcl 20 Mg/2 Ml Oral.Conc) 5 mg PO Q8H PRN PRN Reason: COWS > 8 Last Admin: 01/17/23 23:22 Dose: 5 mg Methadone HCl (Methadone Hcl 20 Mg/2 Ml Oral.Conc) 15 mg PO DAILY [facility] Last Admin: 01/18/23 08:23 Dose: 15 mg Mirtazapine (Mirtazapine 30 Mg Tablet) 30 mg PO BEDTIME [facility] Last Admin: 01/17/23 23:19 Dose: 30 mg Naloxone HCl (Naloxone Hcl Nasal 4 Mg [place]) 4 mg NOSTRILALT ONCE PRN PRN Reason: opioid overdose Nicotine Polacrilex (Nicotine Polacrilex 2 Mg Gum) 2 mg BUCCAL Q2H PRN PRN Reason: Nicotine Cravings Olanzapine (Olanzapine 5 Mg Tablet) 5 mg PO DAILY PRN PRN Reason: agitation Last Admin: 01/18/23 03:05 Dose: 5 mg Omeprazole (Omeprazole 40 Mg Capsule.Dr) 40 mg PO BID@0630,1630 [facility] Last Admin: 01/18/23 06:40 Dose: 40 mg Ondansetron HCl (Ondansetron Odt 4 Mg Tab.Rapdis) 4 mg TRANSLINGU Q6H PRN PRN Reason: Nausea Last Admin: 01/12/23 14:17 Dose: 4 mg Prazosin HCl (Prazosin Hcl 1 Mg Capsule) 1 mg PO BID@0900,1500 [facility]; Protocol Last Admin: 01/13/23 15:55 Dose: Not Given Prazosin HCl (Prazosin Hcl 1 Mg Capsule) 4 mg PO BEDTIME [facility]; Protocol Last Admin: 01/17/23 23:19 Dose: 4 mg Allergies Allergies Allergy/AdvReac Type Severity Reaction Status Date / Time acetaminophen [From VICODIN] Allergy Unknown RASH Verified 01/09/23 20:59 hydrocodone [From VICODIN] Allergy Unknown RASH Verified 01/09/23 20:59 clonidine AdvReac Unknown Unknown Verified 01/10/23 01:05 Assessment & Plan Assessment & Plan (1) Depression: Status: Acute Code(s): F32.A - Depression, unspecified (2) Cocaine use disorder: Status: Acute Code(s): F14.10 - Cocaine abuse, uncomplicated (3) Opioid use disorder: Status: Acute Code(s): F11.90 - Opioid use, unspecified, uncomplicated (4) Alcohol use disorder: Status: Acute Code(s): F10.90 - Alcohol use, unspecified, uncomplicated Plan 01/10: ativan per CIWA for AUD and + benzo utox. start methadone 30 mg daily for opioid use disorder. supportive care for cocaine use. restart meds for regulation of mood. refer for CSS. 01/11: calm, cooperative. sleepy, 2/2 not sleeping during cocaine run. r eporting some Sx of alcohol withdrawal, but will start ativan taper today. DC lexapro per pt request. 01/12: ativan taper DCed due to reports of over-sedation yesterday. continue methadone 30 and other medications for now and observe for level of consciousness. pt reporting feeling in opioid withdrawal today; seems more awake and alert than yesterday. 01/13: very sedated. room and person NEG for contraband. 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 utox ordered. HOLD sedating medications. 01/14: xray abd NEG. utox unenlightening. methadone being split into TID dosing for today, sedating meds being held, VPA rescheduled to all be at HS. 01/15: less sedated this morning, c/o withdrawal Sx. COWs with methadone 5 PRN reinstated. VPA low at 49.2. ammonia WNL. schedule methadone 10 mg daily with PRNs available for now, until pt's level on consciousness more consistent. T/C increase in VPA dosing at HS as pt continues to have broken sleep. 01/16 continue COWS 01/17 increase Methadone up to 15 mg po qhs, increase Prazosin at hs. 01/18 continue tx. pt hesitant about MAT but willing to talk with addiction medicine. No SI/HI. Reason for continued inpatient stay Substantial Risk for: harm to self Time Spent With Patient Time: Total time managing care of this patient today ____ minutes.
--- NOTE | 2023-01-18 11:02 | MHC.RECOVRN ---
Met with pt in group room after consult placed to Addiction Medicine to discuss MOUD. Pt reports prior to admission using heroin, 2 bundles daily x 6 months. Pt reports her son on January 04, 2022 and since then has increased alcohol use and began opioid use. Pt reports she had used alcohol occasionally, when playing cards with my friends on the weekends, prior to son's but since has been drinking 2 pints of vodka daily. Pt reports she began heroin use approx 6 months ago. Pt reports she has been to [facility] in the past for alcohol use, not opioid use. Pt received 15 mg methadone this morning, appears comfortable. Pt reports body aches, nausea, diaphoresis. Pt requesting increase in methadone dose and to continue methadone outpatient at [facility] in [place]. Denies questions or concerns for t/w. Discussed with Zulema Wilks APRN.
--- NOTE | 2023-01-18 11:11 | PC.NURSE ---
COWS is 9 at 0800 but pt is due to get methadone 15mg so prn not given
[2023-01-18] MEDS: Loperamide HCl 2 MG CAPSULE PO (12:31)
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
[2023-01-18] MEDS: Ondansetron ODT 4 MG TAB.RAPDIS TRANSLINGU (13:17)
[2023-01-18] MEDS: Ibuprofen 600 MG TABLET PO (13:17)
[2023-01-18] MEDS: Buprenorphine/Naloxone 2/0.5mg FILM 0.25 FILM SUBLINGUAL (13:57)
[2023-01-18] MEDS: Hydrocortisone 1 % Cream 28.35 GM TUBE 1 APPL TOPICAL (14:03)
--- NOTE | 2023-01-18 15:43 | MHC.RECOVRN ---
Met with pt to follow up after receiving first dose Suboxone. Pt in common area, conversing with peers. Pt reports feeling the same since receiving the Suboxone. Denies increased withdrawal symptoms. Discussed with Zulema Wilks APRN.
[2023-01-18] MEDS: hydrOXYzine HCL 50 MG TABLET PO (17:45)
[2023-01-18 21:10] VITALS: BP 109/54; PULSE 67; RESP 18; TEMP 36.6; O2SAT 97
[2023-01-18] MEDS: Gabapentin 300 MG CAPSULE PO (21:15)
[2023-01-18] MEDS: Divalproex Sodium 500 MG TABLET.DR 1000 MG PO (21:15)
[2023-01-18] MEDS: Mirtazapine 30 MG TABLET PO (21:15)
[2023-01-18] MEDS: Prazosin HCL 1 MG CAPSULE 4 MG PO (23:04)
[2023-01-19] MEDS: Melatonin 3 MG TABLET PO (00:58)
[2023-01-19] MEDS: Folic Acid 1 MG TABLET PO (08:29)
[2023-01-19] MEDS: methADONE HCl 20 MG/2 ML ORAL.CONC 15 MG PO (08:29)
[2023-01-19] MEDS: Omeprazole 40 MG CAPSULE.DR PO (08:29)
[2023-01-19 08:53] VITALS: BP 113/61; PULSE 86; RESP 18; TEMP 36.3; O2SAT 99
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
--- NOTE | 2023-01-19 11:03 | HE.PHANOTE ---
RE: med disposal Nurse came back after picking up pt own meds, asked for all medications in bag to be destroyed stating that provider does not want pt to get confused with new home meds. Pharmacy removed pt information from bottles as disposed of all home medications that were previously stored here.
--- NOTE | 2023-01-19 15:44 | MHC.RECOVRN ---
Attempted to meet with pt around 11:30AM, pt had been discharged without [facility] knowledge.
== END 2023-01-19 11:00 | disposition home or self-care (01) | DRG 754 ==
LOC: HO.ED 16:29 → HO.PADLT16 21:16
PROVIDERS: Physician Assistant Medical; Admitting Provider Psychiatry & Neurology Psychiatry; Emergency Provider Internal Medicine; Visit Provider Psychiatry & Neurology Psychiatry
DX: F32.A Depression, unspecified (principal); R45.851 Suicidal ideations; F14.10 Cocaine abuse, uncomplicated; F10.139 Alcohol abuse with withdrawal, unspecified; F11.20 Opioid dependence, uncomplicated; F19.10 Other psychoactive substance abuse, uncomplicated; Z20.822 Contact with and (suspected) exposure to COVID-19; Z59.01 Sheltered homelessness; Z79.899 Other long term (current) drug therapy
CPT/HCPCS: 36415; 74019; 80053; 80061; 80143; 80164; 80179; 80307; 81001; 81025; 82140; 82607; 82746; 83036; 84439; 84443; 85025; 87635; 93005; 99285; S9485

== ENCOUNTER 2023-01-27 16:36 | Emergency (ER) | payer OTHER, MEDICAID, SELFPAY ==
[2023-01-27 16:40] VITALS: BP 141/76; PULSE 73; RESP 18; TEMP 36.6; O2SAT 100; BMI 23.2
--- NOTE | 2023-01-27 16:40 | ED_ITS ---
HPI - Psych General Chief Complaint: Psychiatric Symptoms Stated Complaint: crisis Time Seen by Provider: 01/27/23 17:50 Source: patient Mode of arrival: ambulatory Limitations: no limitations History of Present Illness HPI Narrative: Patient comes to the emergency room complaining of vague suicidal ideation, admits to using heroin, alcohol, cocaine. Patient complaining of nausea, complaining of depression and thinking about overdosing. Related Data Home Medications Medication Instructions Recorded Confirmed baclofen 10 mg tablet 10 mg PO TID 01/27/23 01/27/23 divalproex 500 mg tablet,delayed 1,000 mg PO BEDTIME 01/27/23 01/27/23 release folic acid 1 mg tablet 1 mg PO DAILY 01/27/23 01/27/23 gabapentin 300 mg capsule 300 mg PO BEDTIME 01/27/23 01/27/23 melatonin 3 mg tablet 3 mg PO BEDTIME PRN insomnia 01/27/23 01/27/23 mirtazapine 30 mg tablet 30 mg PO BEDTIME 01/27/23 01/27/23 olanzapine 5 mg tablet 5 mg PO BID PRN Agitation 01/27/23 01/27/23 omeprazole 40 mg capsule,delayed 40 mg PO BID 01/27/23 01/27/23 release prazosin 2 mg capsule 2 mg PO BEDTIME 01/27/23 01/27/23 Allergies Allergy/AdvReac Type Severity Reaction Status Date / Time acetaminophen [From VICODIN] Allergy Unknown RASH Verified 01/09/23 20:59 hydrocodone [From VICODIN] Allergy Unknown RASH Verified 01/09/23 20:59 clonidine AdvReac Unknown Unknown Verified 01/10/23 01:05 Review of Systems Review of Systems: Constitutional : No Weight loss, No Fever, No Chills, No Night Sweats, No Fatigue, No Malaise ENT/Mouth : No Hearing loss, No Ear Pain, No Nasal Congestion, No Sinus Pain, No Hoarseness, No sore throat, No Rhinorrhea, No Swallowing Difficulty Eyes: No Eye Pain, No Swelling, No Redness, No Foreign Body, No Discharge, No Vision Changes Cardiovascular : No Chest Pain, No SOB, No Dyspnea on Exertion, No Orthopnea, No Edema, No Palpitations Respiratory : No Cough, No Sputum, No Wheezing, No Smoke Exposure, No Dyspnea Gastrointestinal : No Nausea, No Vomiting, No Diarrhea, No Constipation, No abdominal Pain, No Hematochezia, No Melena Genitourinary : no irregular bleeding, No Dysuria, No Urinary Frequency, No Hematuria, No Urinary Incontinence, No Urgency, No Flank Pain, No Urinary Flow Changes, No Hesitancy Musculoskeletal : No joint pain, No Myalgias, No Joint Swelling Skin : No Skin Lesions, No rash Neuro : No Weakness, No Numbness, No Paresthesias, No Loss of Consciousness, No Dizziness, No Headache Psych : Complaining of anxiety, depression, vague suicidal ideation, pizza drug use Heme/Lymph: No Bruising, No Bleeding,No Lymphadenopathy Endocrine : No Polyuria, No Polydipsia, No Temperature Intolerance [facility] Past Medical History Medical History Alcohol use disorder Cocaine use disorder Leukemia in remission Opioid use disorder Social History Social History Household Members: Friend(s) Housing: Other Housing Other:: Currently homeless, staying with friend until able to find housing. Do you presently have visiting nurse or other home services: No Alcohol intake: current Alcohol intake frequency: 3 or more drinks per day Patient Tobacco Use Status: Current everyday Tobacco user Tobacco use type: Cigarette Cigarette Packs Per Day: 1 Cigarettes Per Day: 20.0 Use of substances other than those prescribed or required for medical reasons: Refusing to respond Substance Use Type: Crack/Cocaine and Heroin Last Used Substance: Weeks (ago) Any prior treatment program specific to substance use: No Advance Directives: No Advance Directives Information Provided: No Patient : No service: No Sexual orientation: Straight/Heterosexual Physical Exam Vital Signs: Vital Signs: Last Vital Signs Temp 98.0 F 01/28/23 05:44 Pulse 69 01/28/23 05:44 Resp 16 01/28/23 05:44 BP 101/43 L 01/28/23 05:44 Pulse Ox 97 01/28/23 05:44 O2 Del Method Room Air 01/28/23 05:44 BMI result Body Mass Index 23.2 Const: Other: Appearance: Alert. Oriented X3. No acute distress. Eyes: Pupils equal, round and reactive to light. ENT: Pharynx normal. Neck: Normal inspection. Neck supple. No lymph nodes noted. No crepitus CVS: Normal heart rate and rhythm. Pulses normal. Normal S1 and S2 Respiratory: No respiratory distress. Breath sounds normal. No Wheezing. No rales Abdomen: Soft and nontender. No rigidity. No distention. Skin: Skin warm and dry. Normal skin color. Normal skin turgor. Extremities: No lower extremity edema. No Lacerations. No Rash Neuro: Oriented X 3. No motor deficit. No sensory deficit. Moving all extremities. No slurred speech. CN 2 through 12 grossly intact Psych: calm, cooperative, normal affect Course Course Course Narrative: RME - 37 yo female with history of polysubstance abuse, ETOH use, depression with history of suicide attempts in the past who presents to the ER for evaluation of depression and SI with no plan. Admits to relapsing with heroin 3 days after her recent admission here. Admits to medication noncompliance 2-3 days after d/c as well. Never went to suboxone clinic after discharge. She feels like she is withdrawing from all substances, last use of everything was yesterday. Plan: medical clearance and CARE team evaluation Reevaluation(s) Reevaluation #1: recently discharged from . History of substance abuse, poses no threat to self or others. Will arrange suboxone follow up. History of malingering. Time: 11:20 Medications Administered Generic Name Dose Route Start Last Admin Trade Name Freq PRN Reason Stop Dose Admin Baclofen 10 mg 01/28/23 09:00 01/28/23 10:50 Baclofen 10 Mg Tablet PO 10 mg TID MICK Administration Folic Acid 1 mg 01/28/23 09:00 01/28/23 10:50 Folic Acid 1 Mg Tablet PO 1 mg DAILY MICK Administration Omeprazole 40 mg 01/28/23 09:00 01/28/23 10:50 Omeprazole 40 Mg Capsule.Dr PO 40 mg BID MICK Administration Discontinued Medications Generic Name Dose Route Start Last Admin Trade Name Freq PRN Reason Stop Dose Admin Baclofen 10 mg 01/28/23 00:42 01/28/23 00:59 Baclofen 10 Mg Tablet PO 01/28/23 00:43 10 mg ONCE ONE Administration Divalproex Sodium 1,000 mg 01/28/23 00:42 01/28/23 00:59 Divalproex Sodium Er 500 Mg Tab.Er.24h PO 01/28/23 00:43 1,000 mg ONCE ONE Administration Gabapentin 300 mg 01/28/23 00:42 01/28/23 00:59 Gabapentin 300 Mg Capsule PO 01/28/23 00:43 300 mg ONCE ONE Administration Ibuprofen 600 mg 01/27/23 18:03 01/27/23 18:06 Ibuprofen 600 Mg Tablet PO 01/27/23 18:04 600 mg ONCE ONE Administration Melatonin 3 mg 01/28/23 00:42 01/28/23 00:59 Melatonin 3 Mg Tablet PO 01/28/23 00:43 3 mg ONCE ONE Administration Olanzapine 10 mg 01/27/23 22:10 01/27/23 22:26 Olanzapine Odt 10 Mg Tab.Rapdis TRANSLINGU 01/27/23 22:11 10 mg ONCE ONE Administration Ondansetron HCl 4 mg 01/27/23 18:03 01/27/23 18:06 Ondansetron Odt 4 Mg Tab.Rapdis TRANSLINGU 01/27/23 18:04 4 mg ONCE ONE Administration Prazosin HCl 2 mg 01/28/23 00:42 01/28/23 01:41 Prazosin Hcl 1 Mg Capsule PO 01/28/23 00:43 2 mg ONCE ONE Administration Protocol Medical Decision Making Medical Decision Making MDM Narrative: Patient's labs were obtained. -of note, the care team clinician spoke to the patient, also it was noticed that the patient's boyfriend is in the Behavioral Health pod as a patient to. Both are homeless, they were speaking in Indonesian, they both want to get admitted in a.m. 5. They were not aware the clinician speaks Indonesian -the care team will evaluate the patient in the morning of January 28 Differential Diagnosis Differential Diagnoses: The differential diagnosis associated with the presentation includes (Anxiety, depression, substance abuse, malingering) Lab Data 01/27/23 19:30 01/27/23 19:30 Labs: Lab Results 01/27/23 01/27/23 01/27/23 Range/Units 17:25 17:25 17:25 WBC (4.8-10.8) X10*3/uL RBC (4.20-5.50) X10*6/uL Hgb (12.0-16.0) g/dl Hct (37.0-47.0) % MCV (80.0-98.0) fL MCH (27.0-33.0) pg MCHC (31.0-35.0) g/dl RDW (11.0-16.0) % Plt Count (160-400) X10*3/uL MPV (9.4-12.3) fL Immature Gran % (Auto) (0.0-0.4) % Neut % (Auto) (45-73) % Lymph % (Auto) (20-40) % [place] % (Auto) (2-11) % Eos % (Auto) (0-4) % Baso % (Auto) (0-2) % Lymph # (Auto) (1.2-4.9) X10*3/uL [place] # (Auto) (0.1-1.2) X10*3/uL Eos # (Auto) (0.0-0.4) X10*3/uL Baso # (Auto) (0.0-0.2) X10*3/uL Abs Immat Gran (auto) (0.00-0.03) X10*3/uL Absolute Neuts (auto) (2.0-8.3) x10*3/uL Absolute Nucleated RBC (0.0-0.012) X10*3/uL Nucleated RBC % (auto) (0.0-0.2) /100WBC Sodium (135-145) mmol/L Potassium (3.3-5.1) mmol/L Chloride (96-108) mmol/L Carbon Dioxide (22-29) mmol/L Anion Gap (12-20) BUN (9-16) mg/dL Creatinine (0.5-1.4) mg/dL Estim Creat Clear Calc Estimated GFR Random Glucose (60-115) mg/dL Calcium (8.4-10.2) mg/dL Magnesium (1.6-2.6) mg/dL Total Bilirubin (0.0-1.0) mg/dL Direct Bilirubin (0.0-0.5) mg/dL AST (5-31) U/L ALT (0-31) U/L Alkaline Phosphatase (39-117) U/L Total Protein (6.5-8.0) g/dL Albumin (3.5-5.0) g/dL Urine Color Yellow Urine Appearance Clear Urine pH 6.0 (5.0-9.0) Ur Specific Elim 1.025 (1.005-1.025) Urine Protein Negative (Neg-Trace) mg/dL Urine Glucose (UA) Negative (Negative) mg/dL Urine Ketones Negative (Negative) mg/dL Urine Blood Negative (Negative) Urine Nitrite Negative (Negative) Ur Leukocyte Esterase Negative (Negative) Urine Test NEGATIVE (NEGATIVE) Urine Opiates Screen (Not Detect) Urine Fentanyl Screen (Not Detect) Ur Barbiturates Screen (Not Detect) Valproic Acid (50.0-100.0) mcg/mL Ur Phencyclidine Scrn (Not Detect) Ur Amphetamines Screen (Not Detect) U Benzodiazepines Scrn (Not Detect) Urine Cocaine Screen (Not Detect) U Marijuana (THC) Screen (Not Detect) Ethyl Alcohol mg/dL COVID-19 (FRANTZ) Negative (Negative) COVID-19 Clin Com See Note 01/27/23 01/27/23 01/27/23 Range/Units 17:25 19:30 19:30 WBC 5.1 (4.8-10.8) X10*3/uL RBC 4.30 (4.20-5.50) X10*6/uL Hgb 12.6 (12.0-16.0) g/dl Hct 38.9 (37.0-47.0) % MCV 90.5 (80.0-98.0) fL MCH 29.3 (27.0-33.0) pg MCHC 32.4 (31.0-35.0) g/dl RDW 13.0 (11.0-16.0) % Plt Count 336 D (160-400) X10*3/uL MPV 9.4 (9.4-12.3) fL Immature Gran % (Auto) 0.2 (0.0-0.4) % Neut % (Auto) 37.5 L (45-73) % Lymph % (Auto) 41.9 H (20-40) % [place] % (Auto) 15.3 H (2-11) % Eos % (Auto) 4.3 H (0-4) % Baso % (Auto) 0.8 (0-2) % Lymph # (Auto) 2.1 (1.2-4.9) X10*3/uL [place] # (Auto) 0.8 (0.1-1.2) X10*3/uL Eos # (Auto) 0.2 (0.0-0.4) X10*3/uL Baso # (Auto) 0.0 (0.0-0.2) X10*3/uL Abs Immat Gran (auto) 0.01 (0.00-0.03) X10*3/uL Absolute Neuts (auto) 1.9 L (2.0-8.3) x10*3/uL Absolute Nucleated RBC 0.000 (0.0-0.012) X10*3/uL Nucleated RBC % (auto) 0.0 (0.0-0.2) /100WBC Sodium 140 (135-145) mmol/L Potassium 4.0 (3.3-5.1) mmol/L Chloride 108 (96-108) mmol/L Carbon Dioxide 25 (22-29) mmol/L Anion Gap 11 L (12-20) BUN 21 H (9-16) mg/dL Creatinine 0.73 (0.5-1.4) mg/dL Estim Creat Clear Calc 100.6 Estimated GFR > 60 Random Glucose 77 (60-115) mg/dL Calcium 8.9 (8.4-10.2) mg/dL Magnesium 1.7 (1.6-2.6) mg/dL Total Bilirubin 0.2 (0.0-1.0) mg/dL Direct Bilirubin < 0.2 (0.0-0.5) mg/dL AST 17 (5-31) U/L ALT 13 (0-31) U/L Alkaline Phosphatase 45 (39-117) U/L Total Protein 6.5 (6.5-8.0) g/dL Albumin 3.6 (3.5-5.0) g/dL Urine Color Urine Appearance Urine pH (5.0-9.0) Ur Specific Elim (1.005-1.025) Urine Protein (Neg-Trace) mg/dL Urine Glucose (UA) (Negative) mg/dL Urine Ketones (Negative) mg/dL Urine Blood (Negative) Urine Nitrite (Negative) Ur Leukocyte Esterase (Negative) Urine Test (NEGATIVE) Urine Opiates Screen Not Detected (Not Detect) Urine Fentanyl Screen Not Detected (Not Detect) Ur Barbiturates Screen Not Detected (Not Detect) Valproic Acid (50.0-100.0) mcg/mL Ur Phencyclidine Scrn Not Detected (Not Detect) Ur Amphetamines Screen Not Detected (Not Detect) U Benzodiazepines Scrn Not Detected (Not Detect) Urine Cocaine Screen POSITIVE H (Not Detect) U Marijuana (THC) Screen Not Detected (Not Detect) Ethyl Alcohol mg/dL COVID-19 (FRANTZ) (Negative) COVID-19 Clin Com 01/27/23 01/27/23 Range/Units 19:31 19:31 WBC (4.8-10.8) X10*3/uL RBC (4.20-5.50) X10*6/uL Hgb (12.0-16.0) g/dl Hct (37.0-47.0) % MCV (80.0-98.0) fL MCH (27.0-33.0) pg MCHC (31.0-35.0) g/dl RDW (11.0-16.0) % Plt Count (160-400) X10*3/uL MPV (9.4-12.3) fL Immature Gran % (Auto) (0.0-0.4) % Neut % (Auto) (45-73) % Lymph % (Auto) (20-40) % [place] % (Auto) (2-11) % Eos % (Auto) (0-4) % Baso % (Auto) (0-2) % Lymph # (Auto) (1.2-4.9) X10*3/uL [place] # (Auto) (0.1-1.2) X10*3/uL Eos # (Auto) (0.0-0.4) X10*3/uL Baso # (Auto) (0.0-0.2) X10*3/uL Abs Immat Gran (auto) (0.00-0.03) X10*3/uL Absolute Neuts (auto) (2.0-8.3) x10*3/uL Absolute Nucleated RBC (0.0-0.012) X10*3/uL Nucleated RBC % (auto) (0.0-0.2) /100WBC Sodium (135-145) mmol/L Potassium (3.3-5.1) mmol/L Chloride (96-108) mmol/L Carbon Dioxide (22-29) mmol/L Anion Gap (12-20) BUN (9-16) mg/dL Creatinine (0.5-1.4) mg/dL Estim Creat Clear Calc Estimated GFR Random Glucose (60-115) mg/dL Calcium (8.4-10.2) mg/dL Magnesium (1.6-2.6) mg/dL Total Bilirubin (0.0-1.0) mg/dL Direct Bilirubin (0.0-0.5) mg/dL AST (5-31) U/L ALT (0-31) U/L Alkaline Phosphatase (39-117) U/L Total Protein (6.5-8.0) g/dL Albumin (3.5-5.0) g/dL Urine Color Urine Appearance Urine pH (5.0-9.0) Ur Specific Elim (1.005-1.025) Urine Protein (Neg-Trace) mg/dL Urine Glucose (UA) (Negative) mg/dL Urine Ketones (Negative) mg/dL Urine Blood (Negative) Urine Nitrite (Negative) Ur Leukocyte Esterase (Negative) Urine Test (NEGATIVE) Urine Opiates Screen (Not Detect) Urine Fentanyl Screen (Not Detect) Ur Barbiturates Screen (Not Detect) Valproic Acid < 12.5 L (50.0-100.0) mcg/mL Ur Phencyclidine Scrn (Not Detect) Ur Amphetamines Screen (Not Detect) U Benzodiazepines Scrn (Not Detect) Urine Cocaine Screen (Not Detect) U Marijuana (THC) Screen (Not Detect) Ethyl Alcohol < 10 mg/dL COVID-19 (FRANTZ) (Negative) COVID-19 Clin Com Discharge Plan Discharge Clinical Impression: Polysubstance abuse, Depression Patient Disposition: Home, Self-Care Instructions: Depression (ED), Polysubstance Abuse (ED) Prescriptions: No Action olanzapine 5 mg tablet 5 mg PO BID PRN (Reason: Agitation) melatonin 3 mg tablet 3 mg PO BEDTIME PRN (Reason: insomnia) divalproex 500 mg tablet,delayed release (DR/EC) 1,000 mg PO BEDTIME omeprazole 40 mg capsule,delayed release(DR/EC) 40 mg PO BID baclofen 10 mg tablet 10 mg PO TID mirtazapine 30 mg tablet 30 mg PO BEDTIME gabapentin 300 mg capsule 300 mg PO BEDTIME folic acid 1 mg tablet 1 mg PO DAILY prazosin 2 mg capsule 2 mg PO BEDTIME Referrals: Physician,Unknown J [Primary Care Provider] - (PCP 1 week) Interventions: [place]-Suicide Risk Severity Scale Last Done: 01/27/23 20:43
[2023-01-27 17:59] LABS: Appearance Urine Clear; Color Urine Yellow; Glucose Urine UA Negative (Negative); Leukocyte Esterase Urine Negative (Negative); Nitrite Urine Negative (Negative); Specific Gravity - Urine 1.025 (1.005-1.025); UPreg QC Valid YES; Urine Blood Negative (Negative); Urine Ketones Negative (Negative); Urine Pregnancy NEGATIVE (NEGATIVE); Urine Protein Negative (Neg-Trace)
[2023-01-27 18:05] LABS: Amphetamine Screen Urine Not Detected (Not Detect); Barbiturates, Urine Not Detected (Not Detect); Benzodiazepines Screen Urine Not Detected (Not Detect); Cannabinoid Screen Urine Not Detected (Not Detect); Cocaine Screen Urine POSITIVE (Not Detect); Fentanyl, urine Not Detected (Not Detect); Opiate Screen Urine Not Detected (Not Detect); Phencyclidine Screen Urine Not Detected (Not Detect)
[2023-01-27] MEDS: Ondansetron ODT 4 MG TAB.RAPDIS TRANSLINGU (18:06)
[2023-01-27] MEDS: Ibuprofen 600 MG TABLET PO (18:06)
[2023-01-27 18:30] LABS: COVID-19 Test Negative (Negative); IDNOW Serial# BCCEAD1C
[2023-01-27 19:38] LABS: MANUAL DIFF FLAG NO
[2023-01-27 19:39] LABS: Basophils Percent Auto 0.8 % (0-2); Eosinophils Absolute Auto 0.2 X10*3/uL (0.0-0.4); Eosinophils Percent Auto 4.3 % (0-4); Hematocrit 38.9 % (37.0-47.0); Hemoglobin 12.6 g/dl (12.0-16.0); Imm Gran Abs Auto 0.01 X10*3/uL (0.00-0.03); Imm Gran Pct Auto 0.2 % (0.0-0.4); Lymphocytes Absolute Auto 2.1 X10*3/uL (1.2-4.9); Lymphocytes Percent Auto 41.9 % (20-40); Mean Corpuscular HGB Conc 32.4 g/dl (31.0-35.0); Mean Corpuscular Hemoglobin 29.3 pg (27.0-33.0); Mean Corpuscular Volume 90.5 fL (80.0-98.0); Mean Platelet Volume 9.4 fL (9.4-12.3); Monocytes Absolute Auto 0.8 X10*3/uL (0.1-1.2); Monocytes Percent Auto 15.3 % (2-11); Neutrophils Absolute Auto 1.9 x10*3/uL (2.0-8.3); Neutrophils Percent Auto 37.5 % (45-73); Platelet Count 336 X10*3/uL (160-400); White Blood Count 5.1 X10*3/uL (4.8-10.8)
[2023-01-27 19:50] LABS: Ethanol < 10 mg/dL; Valproate < 12.5 mcg/mL (50.0-100.0)
[2023-01-27 20:07] LABS: Alanine Aminotransferase 13 U/L (0-31); Albumin Level 3.6 g/dL (3.5-5.0); Alkaline Phosphatase 45 U/L (39-117); Anion Gap 11 (12-20); Aspartate Amino Transferase 17 U/L (5-31); Bilirubin Direct < 0.2 mg/dL (0.0-0.5); Bilirubin Total 0.2 mg/dL (0.0-1.0); Blood Urea Nitrogen 21 mg/dL (9-16); Calcium 8.9 mg/dL (8.4-10.2); Carbon Dioxide 25 mmol/L (22-29); Chloride 108 mmol/L (96-108); Creatinine Clr Calc Pharmacy 100.6; Estimated Glomerular Filt Rate > 60; Glucose Random 77 mg/dL (60-115); Magnesium 1.7 mg/dL (1.6-2.6); Sodium 140 mmol/L (135-145); Total Protein 6.5 g/dL (6.5-8.0)
[2023-01-27 20:43] VITALS: BP 120/75; PULSE 87; RESP 18; TEMP 37; O2SAT 100
[2023-01-27 22:00] VITALS: BP 129/85
[2023-01-27] MEDS: OLANZapine ODT 10 MG TAB.RAPDIS TRANSLINGU (22:26)
[2023-01-27 23:18] VITALS: BP 110/70; PULSE 74; RESP 16; TEMP 36.6; O2SAT 98
[2023-01-28] MEDS: Divalproex Sodium ER 500 MG TAB.ER.24H 1000 MG PO (00:59)
[2023-01-28] MEDS: Melatonin 3 MG TABLET PO (00:59)
[2023-01-28] MEDS: Baclofen 10 MG TABLET PO ×2 (00:59→10:50)
[2023-01-28] MEDS: Gabapentin 300 MG CAPSULE PO (00:59)
[2023-01-28] MEDS: Prazosin HCL 1 MG CAPSULE 2 MG PO (01:41)
[2023-01-28 05:44] VITALS: BP 101/43; PULSE 69; RESP 16; TEMP 36.7; O2SAT 97
--- NOTE | 2023-01-28 06:01 | PC.NURSE ---
informed MD that pts BP is 101/48. Pt is sleeping comfortably, denies any dizziness, feeling of faint, headache or any symptoms of low BP.
[2023-01-28] MEDS: Omeprazole 40 MG CAPSULE.DR PO (10:50)
[2023-01-28] MEDS: Folic Acid 1 MG TABLET PO (10:50)
--- NOTE | 2023-01-28 16:41 | MHC.CARE ---
Pt seen by CARE team and discharged with referral and community resources.
--- NOTE | 2023-01-28 18:19 | MHC.CARE ---
referral sent to [facility] for outpatient therapy, RAD to f/u with them tomorrow (01/29)
== END 2023-01-28 12:28 | disposition home or self-care (01) ==
PROVIDERS: Physician Assistant; Emergency Provider Emergency Medicine
DX: F19.10 Other psychoactive substance abuse, uncomplicated (principal); R45.851 Suicidal ideations; F14.90 Cocaine use, unspecified, uncomplicated; F10.90 Alcohol use, unspecified, uncomplicated; F32.A Depression, unspecified; Z20.822 Contact with and (suspected) exposure to COVID-19
CPT/HCPCS: 80048; 80076; 80164; 80307; 81003; 81025; 83735; 85025; 87635; 99285; S9485